=== PATIENT | female | born 1970 | race Caucasian/White ===

== ENCOUNTER 2017-05-07 09:56 | Day surgery (SDC) | payer OTHER ==
[~2017-05-07 09:56] MED LIST: (None)20 M1 PO; ACEASPCAF PO; ACEDIPPM; AEROECLIPSE II1 EACH MC; ALBU90OI; ALBU90OI6 INH; AMIT50; AMOX500 PO; AMOX875 PO; AZIT250 PO; AZIT500 PO; BUSP10 PO; CARB200; CARB200ER PO; CARI350; CHOL10002; CLON.1 PO; CLON.5 PO; CYCL10 PO; DIAZ10 PO; DIAZ5; DIAZ5 PO; DOXY100 PO; DULO30 PO; Desyrel150 MG; EPIN.3I; EPIN.3I IM; FAMO20 PO; FAMO40 PO; FLUO20; GABA600; HYDACE5; HYDACE5 PO; HYDR1TAB94; IBUP600 PO; IBUP800; IBUP800 PO; Imitrex50 MG JT; LORA1 PO; LORA10; LORA10ER PO; MELO7.5 PO; METR500 PO; NAPR375 PO; NAPR500 PO; NAPR550 PO; Norco 5-325 Ta1 EACH PO; OLAN10 PO; OMEP20ER; OXYACE5C PO; OXYACE5T PO; Omeprazole20 M1 PO; PANT20; PRED20 PO; PRODEXEL PO; PROP120ER; PROP160ER PO; QUET200; RANI150; Ranitidine HCl150 M1 PO; Valium5 MG PO; Ventolin Soln3 ML INH; Vibramycin100 MG PO; Vitamin D2000 UNIT PO; ZOLM5; ZOLP10 PO
== END 2017-05-07 22:42 | disposition home or self-care (01) ==
LOC: MOI MAM 09:56
PROC: 0HBU3ZX Excision of Left Breast, Percutaneous Approach, Diagnostic (ICD-10-PCS; principal; 2017-05-07)
DX: N60.12 Diffuse cystic mastopathy of left breast (principal); N60.22 Fibroadenosis of left breast
CPT/HCPCS: 19081; 88305

== ENCOUNTER → 2017-11-27 | Outpatient (CLI) | payer OTHER ==
[2017-12-02 15:07] LABS: HPV 16 Negative (Negative); HPV 18 Negative (Negative); HPV OTHER HR TYPES Negative (Negative)
== END | disposition home or self-care (01) ==
LOC: LAB SHORT 15:47 → LAB 15:47
PROVIDERS: Obstetrics & Gynecology
DX: Z01.419 Encounter for gynecological examination (general) (routine) without abnormal findings (principal)
CPT/HCPCS: 87624; G0123

== ENCOUNTER 2020-05-14 14:35 | Inpatient (IN) | payer MEDICARE, OTHER ==
[~2020-05-14] VITALS: Ht 160 cm; Wt 88.3 kg
[2020-05-14] MEDS ORDERED: PROG100 PO (14:43)
[2020-05-14] MEDS ORDERED: PROP160ER PO (14:43)
[2020-05-14] MEDS ORDERED: ESTR2 PO (14:45)
[2020-05-14] MEDS ORDERED: ZOCOR20 MG PO (14:45)
[2020-05-14] MEDS ORDERED: OXYB5 PO (14:46)
[2020-05-14] MEDS ORDERED: LISI20 PO (14:46)
[2020-05-14] MEDS ORDERED: GABA300 PO (14:47)
[2020-05-14] MEDS ORDERED: BUSP10 PO (14:47)
[2020-05-14] MEDS ORDERED: ONDA4 PO (14:47)
[2020-05-14 15:07] LABS: BASOPHILS ABSOLUTE AUTO 0.07 K/mm3 (0.00-0.23); BASOPHILS PERCENT AUTO 1 % (0-2); Hematocrit 38.7 % (33.0-51.0); Hemoglobin 13.9 g/dL (11.5-16.0); LYMPHOCYTES ABSOLUTE AUTO 0.58 K/mm3 (0.84-5.20); LYMPHOCYTES PERCENT AUTO 5 % (21-46); MONOCYTES ABSOLUTE AUTO 0.57 K/mm3 (0.16-1.47); MONOCYTES PERCENT AUTO 5 % (4-13); Mean Corpuscular HGB 30.7 pg (26.0-34.0); Mean Corpuscular HGB Conc 35.9 g/dL (31.5-36.5); Mean Corpuscular Volume 85 fL (80-100); Mean Platelet Volume 10.5 fL (9.1-12.4); Platelet Count 194 K/mm3 (150-400); RDW Coefficient Variation 12.7 % (11.7-14.2); RDW Standard Deviation 39.9 fL (35.1-46.3); Red Blood Cell Count 4.53 M/mm3 (3.80-5.20); White Blood Cell Count 12.64 K/mm3 (4.00-11.30)
[2020-05-14 15:08] LABS: EOSINOPHILS PERCENT AUTO 0 % (0-6); IMMATURE GRAN PERCENT AUTO 3 % (0-1); NEUTROPHILS ABSOLUTE AUTO 11.02 K/mm3 (1.96-9.15); NEUTROPHILS PERCENT AUTO 87 % (41-73)
[2020-05-14 15:28] LABS: Alanine Aminotransfer (ALT/SGP 53 U/L (12-78); Albumin, Blood 2.4 g/dL (3.4-5.0); Albumin/Globulin Ratio 0.5 (0.8-1.8); Alk Phos 100 U/L (50-136); Anion Gap 11 mmol/L (6-16); Aspartate Aminotrans (AST/SGOT 73 U/L (12-37); Blood Urea Nitrogen 16 mg/dL (8-24); Bun/Creatinine Ratio 19.3 (12.0-20.0); CO2, Blood 20 mmol/L (21-32); Calcium, Blood 8.3 mg/dL (8.5-10.1); Chloride, Blood 91 mmol/L (98-108); Creatinine, Blood 0.83 mg/dL (0.40-1.00); Globulin, Blood 4.4 g/dL (2.2-4.0); Glomerular Filtration Rate >60 (60-); Glucose, Blood 130 mg/dL (70-99); Potassium, Blood 2.7 mmol/L (3.5-5.5); Sodium, Blood 122 mmol/L (136-145); Total Protein, Blood 6.8 g/dL (6.4-8.2)
[2020-05-14 16:11] LABS: Influenza A, PCR NEGATIVE (NEGATIVE); Influenza B, PCR NEGATIVE (NEGATIVE); Resp Syncytial Virus, PCR NEGATIVE (NEGATIVE); SARS-Cov-2 (COVID-19) PCR, MMC NEGATIVE (NEGATIVE)
--- NOTE | 2020-05-15 01:23 | NUR ---
HARSH HACKING COUGH/ELEVATED HR PT HAS CONTINUOUS HARSH HACKING NON PRODUCTIVE COUGH THAT IS CAUSING PT TO DRY HEAVE. A RESULT PT HAS ELEVATED HR IN THE 150'S-160'S PER CALL FROM PCU SUPPORT COORDINATOR. PT IS ALSO VERY ANXIOUS, HAS HX OF ANXIETY DISORDER. MEDICATED PT WITH TESSALON PEARLS FOR COUGH AND TRAZADONE FOR SLEEP. PT CONTINUES TO COUGH HARSHLY DESPITE THOSE INTERVENTIONS. DR. BOB CALLED AND NOTIFIED OF PT ELEVATED HR, AND HACKING COUGH. NOTIFIED HIM OF PT ANXIETY BUT HEDID NOT ORDER ANYTHING FOR ANXIETY. RECEIVED ORDER FOR COUGH SYRUP, AND NO ORDERS OR INTERVENTIONS FOR PT HR. CITY BAILIFF MAGDALENA MCNAIR RN MADE AWARE OF PT HR. BREATHING TREATMENT HAS BEEN ADMINISTERED. 3L O2 IN PLACE, SATS 92-93%. WILL CONTINUE TO MONITOR.
--- NOTE | 2020-05-15 01:42 | NUR ---
ELEVATED HR/ANXIETY SPOKE WITH DR. BOB AGAIN REGARDING PT ELEVATED HR IN THE 160'S AND SEVERE ANXIETY D/T COUGH AND SOB. RECEIVED ORDER FOR 1X DOSE OF IV ATIVAN.
--- NOTE | 2020-05-15 03:35 | NUR ---
ICU TRANSFER PT ER ADMIT THIS SHIFT. PT HAD SOME N/V/D UPON ADMISSION BUT HAD VERY LITTLE RESPIRATORY COMPLAINTS ASIDE FROM A HARSH/HACKING COUGH. LUNG SOUNDS COURSE AND TIGHT. PT ON RA. SOME MILD ANXIETY, BUT MEDICATED FOR NAUSEA AND PT WAS ABLE TO REST. AT 0000 PT HR BEGAN TO ELEVATE TO 150'S 160'S PER PCU SYRUP BLENDER GENE PARKS, AND PT HARSH/HACKING COUGH WORSENED. PT REMAINED ON RA AND SATS WNL WITH VITALS. TESSALON PEARLS GIVEN BUT PT COUGH CONTINUED TO WORSEN, CALL FROM SYRUP BLENDER ALSO AT THAT TIME THAT HR SUSTAINING IN THE 150'S-160'S. PT ANXIOUS, MOVING BACK IN FORTH IN BED FROM A LAYING TO A SITTING POSITION, POSITIONAL BREATHING. MAGDALENA MCNAIR PROPERTY MAINTENANCE TECHNICIAN NOTIFIED OF PT ELEVATED HR, AND HACKING COUGH. DR. BOB CALLED AND NOTIFIED, ORDER RECEIVED FOR ADDITIONAL ANTITUSSIVES BUT GIVEN NOTHING TO ADDRESS HR. PT GIVEN COUGH SYRUP, AND WAS GIVEN A BREATHING TREATMENT BY RT, BUT PT COUGH AND SOB CONTINUED TO WORSEN. DR. BOB CALLED AND NOTIFIED ONCE AGAIN OF PT INCREASED HR, ANXIETY AND SOB. RECEIVED ORDER FOR ATIVAN. PT GIVEN ATIVAN AND WAS PLACED ON 3L O2, SATS HAD DECLINED FROM WNL TO 88% ON RA. SATS CORRECTED ON 3L AND PT WAS ABLE TO RELAX SOME AND REST AND REPORTED FEELING SOMEWHAT BETTER. AT ABOUT 0230, WITHIN HALF AN HOUR O2 NEEDS CONTINUED TO INCREASE. SHE WENT FROM REQUIRING 3L TO REQUIRING 12L VIA OXYMIZER. RESP QUCIKENED AND LABORED. RT CALLED TO EVALUATE PT, AND VITALS OBTAINED. PROPERTY MAINTENANCE TECHNICIAN IN ROOM TO ASSESS PT. DR. BOB CALLED AGAIN AND NOTIFIED OF PT INCREASED O2 DEMANDS FROM 3L TO 12 AND BARELY SUSTAINING THE 90'S AND ONCE AGAIN REMINDED OF PT ELEVATED HR. RECEIVED ORDER FOR PCU TRANSFER WITH BIPAP. REPORT GIVEN TO FEROZ MECHANIC FOREMAN. PT TRANSFERRED AT APPROX [address] PT TRANSFERRED TO ICU WITHOUT EVENT.
[2020-05-15 03:51] LABS: PCO2 Arterial 24.1 mmHg (35-45); PO2 Arterial 65.9 mmHg (80-100); pH Blood Arterial 7.46 (7.35-7.45)
[2020-05-15 03:55] LABS: Hematocrit 37.1 % (33.0-51.0); Hemoglobin 13.4 g/dL (11.5-16.0); Mean Corpuscular HGB 30.5 pg (26.0-34.0); Mean Corpuscular HGB Conc 36.1 g/dL (31.5-36.5); Mean Corpuscular Volume 84 fL (80-100); Mean Platelet Volume 10.8 fL (9.1-12.4); Platelet Count 179 K/mm3 (150-400); RDW Coefficient Variation 12.7 % (11.7-14.2); RDW Standard Deviation 39.2 fL (35.1-46.3); White Blood Cell Count 8.29 K/mm3 (4.00-11.30)
[2020-05-15 04:15] LABS: Alanine Aminotransfer (ALT/SGP 71 U/L (12-78); Albumin, Blood 2.3 g/dL (3.4-5.0); Albumin/Globulin Ratio 0.6 (0.8-1.8); Alk Phos 87 U/L (50-136); Anion Gap 11 mmol/L (6-16); Aspartate Aminotrans (AST/SGOT 187 U/L (12-37); Bilirubin, Total 0.8 mg/dL (0.1-1.0); Blood Urea Nitrogen 15 mg/dL (8-24); Bun/Creatinine Ratio 24.8 (12.0-20.0); CO2, Blood 17 mmol/L (21-32); Chloride, Blood 100 mmol/L (98-108); Creatinine, Blood 0.61 mg/dL (0.40-1.00); Globulin, Blood 3.9 g/dL (2.2-4.0); Glomerular Filtration Rate >60 (60-); Glucose, Blood 104 mg/dL (70-99); Magnesium, Blood 1.5 mg/dL (1.6-2.4); Potassium, Blood 3.4 mmol/L (3.5-5.5); Sodium, Blood 128 mmol/L (136-145); Total Protein, Blood 6.2 g/dL (6.4-8.2)
[2020-05-15 04:23] LABS: BAND PERCENT MAN 21 % (0-8); BASOPHILS PERCENT MAN 0 % (0-2); EOSINOPHILS PERCENT MAN 0 % (0-6); LYMPHOCYTES ABSOLUTE MAN 0.66 K/mm3 (0.84-5.20); LYMPHOCYTES PERCENT MAN 8 % (21-46); METAMYELOCYTE ABSOLUTE MAN 0.08 K/mm3 (0.00-0.00); METAMYELOCYTE PERCENT MAN 1 % (0-0); MONOCYTES ABSOLUTE MAN 0.24 K/mm3 (0.16-1.47); MONOCYTES PERCENT MAN 3 % (4-13); MYELOCYTE ABSOLUTE MAN 0.08 K/mm3 (0.00-0.00); MYELOCYTE PERCENT MAN 1 % (0-0); NEUTROPHILS ABSOLUTE MAN 7.21 K/mm3 (1.96-9.15); SEG NEUTROPHILS PERCENT MAN 66 % (41-73); TOTAL CELLS COUNTED 100
[2020-05-15 04:53] LABS: Influenza A, PCR NEGATIVE (NEGATIVE); Influenza B, PCR NEGATIVE (NEGATIVE); Resp Syncytial Virus, PCR NEGATIVE (NEGATIVE); SARS-Cov-2 (COVID-19) PCR, MMC NEGATIVE (NEGATIVE)
--- NOTE | 2020-05-15 08:46 | NUR ---
ASSUMED CARE BEDSIDE REPORT FROM FEROZ SINGLETON. AT START OF SHIFT PT ON AIRVO 45 L 70%, PT INCREASINGLY TACHYPNEIC, RATE 50-60'S, LABORED. GRUNTING RESP. ATTEMPTED TO SLIVER FORMER PT TO SLOW RESP, PT UNABLE TO. HR 150-160, ST. LUNGS CLEAR. PT c DRY HACKING COUGH. RT AT BEDSIDE. PLACED ON BIPAP 10/5 80%. O2 SATS LOW 90'S. RR CONTINUES AT 50-60. DR SHERMAN CONSULTED. MEDICATED c ATIVAN AND HALDOL s RELIEF. PT NOT TOLERATING BIPAP WELL. NEEDS FREQUENT REMINDERS TO LEAVE IN PLACE AND COACHING TO SLOW RESP. POWERGLIDE PLACED TO LUE. RN REMAINS AT BEDSIDE.
[2020-05-15 11:13] LABS: PCO2 Arterial 39.7 mmHg (35-45); pH Blood Arterial 7.26 (7.35-7.45)
[2020-05-15 11:17] LABS: Source, Urine Catheter
--- NOTE | 2020-05-15 11:20 | NUR ---
RN CALLED TO BEDSIDE AT 0945. PT C/O NAUSEA, PULLING AT BIPAP MASK, REFUSING TO WEAR. MEDICATED c ZOFRAN 4 MG IVP s RELIEF. PLACED ON AIRVO 60L, 89% c NRB IN PLACE. O2 SATS DECREASED TO 50-60'S. TACHPNEIC, LABORED RESP. DR SHERMAN CALLED TO BEDSIDE. PLAN FOR INTUBATION. TIMEOUT 1008. SO UPDATED BY PALLATIVE CARE. MEDICATED c ETOMIDATE 20 MG IVP AND VECURONIUM 2 MG. INTUBATED c 7.5 ETT, 24 AT TEETH. + COLOR CHANGE, BILATERAL BS. VENT SETTINGS AC 16/350/10/100%. RESTRAINTS PLACED TO PROTECT LINES AND TUBES. PROPOFOL GTT FOR SEDATION, PRECEDEX D/C'D. OGT PLACED, AUSCUTATED FOR PLACEMENT, LIS. CHEST XRAY COMPLETE. TEMP PROBE TORRES, 16F. URINE SENT TO LAB, RAGINI, CLEAR. TEMP 101.5. AT BEDSIDE. WILL CONTINUE TO MONITOR.
--- NOTE | 2020-05-15 11:23 | NUR ---
Pt have severe dyspnea and nausea. Nursing updated intesivist pt intubated. Family notified and will be coming in. will follow up for disease managment
[2020-05-15 11:27] LABS: Bilirubin, Urine Neg (Neg); Blood, Urine 5+ (Neg); Glucose Qualitative, Urine Neg (Neg); Ketones, Urine 3+ (Neg); Leukocyte Esterase, Urine 1+ (Neg); Nitrite, Urine Neg (Neg); Protein, Urine 3+ (Neg); Urobilinogen, Urine NORM (Normal)
[2020-05-15 11:41] LABS: Appearance, Urine Cloudy (Clear); Color, Urine Yellow (P-Yellow)
[2020-05-15 11:42] LABS: Amorphous Mod (0-Heavy); Bacteria Few /hpf; Granular Casts 0-2 /lpf (0); Mucus Light (0-Heavy); Squamous Epithelial Cells Few /hpf (Few); White Blood Cells, Urine 0-2 /hpf (0-5)
[2020-05-15 16:24] LABS: Base Excess Venous -9.5 mmol/L; Bicarbonate Venous 17.3 mmol/L (24.0-30.0); PCO2 Venous 38 mmHg (38-42); pH Blood Venous 7.27 (7.34-7.37)
[2020-05-15 16:52] LABS: Anion Gap 7 mmol/L (6-16); Blood Urea Nitrogen 18 mg/dL (8-24); Bun/Creatinine Ratio 26.4 (12.0-20.0); CO2, Blood 20 mmol/L (21-32); Calcium, Blood 7.6 mg/dL (8.5-10.1); Chloride, Blood 104 mmol/L (98-108); Creatinine, Blood 0.68 mg/dL (0.40-1.00); Glomerular Filtration Rate >60 (60-); Glucose, Blood 142 mg/dL (70-99); Magnesium, Blood 2.1 mg/dL (1.6-2.4); Potassium, Blood 4.2 mmol/L (3.5-5.5); Sodium, Blood 131 mmol/L (136-145)
--- NOTE | 2020-05-15 17:12 | NUR ---
Spiritual care note: I met with Etienne's , Zia, at bedside. He is very woried and tearful. He repeatedly stated how important Etienne is to him. She has 3 adult dtrs, estranged from one apparently. I provided calm assurance of excellent care and attention. Educated on ICU protocols at his request. He intends to stay at bedside throughout her hospitalization. With Covid restrictions, not sure this is possible. I provided affirmation of obvious love, asurance of care, and encouraged self-care. Etienne is of spirituality. Zia declined prayer at this time. I will remain available.
--- NOTE | 2020-05-15 17:30 | NUR ---
SHIFT SUMMARY SEE INTUBATION NOTE. PT REMAINS INTUBATED AND SEDATED. 7.5 ETT, 23 AT TEETH. VENT SETTINGS AC 24/315/16/85%. PROPOFOL GTT 50 MCG/KG/MIN. PT RESPONSES TO VERBAL STIMULI. MEDICATED c ATIVAN AND FENTANYL PRN. LUNGS COARSE THROUGHOUT. SMALL AMOUNT OF THICK PINK/GALEANO SECRETIONS THROUGH ETT. RR 40'S, DR SHERMAN AWARE. TUBE FEEDS STARTED, VHP AT GOAL OF 15 ML/HR c 30 ML FLUSHES q4 HR. 120 ML OF RESIDUALS THIS AFTERNOON. TORRES PATENT, DRAINING RAGINI URINE TO GRAVITY, [address] ON MONITOR, RATE 130-140'S. EKG DONE, ECHO ORDERED FOR TOMORROW. BP STABLE. TMAX 102.4, MEDICATED c TYLENOL c RELIEF. WILL CONTINUE TO MONITOR UNTIL REPORT TO ONCOMING NURSE.
--- NOTE | 2020-05-15 19:00 | NUR ---
ASSUMPTION OF CARE RECEIVED REPORRT FROM MAUDE SINGLETON. ASSUMED CARE OF PATIENT. PATIENT INTUBATED AND SEDATED WITH VENT SETTINGS AC 24, VT 315, PEEP 16, FIO2 95%. PROPOFOL AT 50MCG/KG/MIN. SAS OF 3. VITALS STABLE AT THIS TIME. WILL REVIEW ORDERS AND TREAT PRESCRIBED.
--- NOTE | 2020-05-15 20:39 | NUR ---
RESIDUALS UPON ASSESSMENT OF GI RESIDUALS, DARK COFFEE GROUND CONSISTANCY NOTED. 50MLS REMOVED, OG TO LIS AND RESEARCH ADMINISTRATOR TO ROOM TO VERIFY ASSESSMENT. DR. SHERMAN NOTIFIED VIA T/P, RECEIVED NEW ORDERS FOR PROTONIX AND CLARIFIED TO RESUME TF AND GIVE PO MEDS SCHEDULED. WILL HOLD HUMABID AND CATAPRES PER HER DIRECTION. WILL MONITOR H/H WITH AM LABS, AND CONTINUE TO MONITOR VITAL SIGNS.
--- NOTE | 2020-05-16 00:03 | NUR ---
REASSESSMENT NO ACUTE CHANGES FROM PREVIOUS ASSESSMENT. VENT SETTINGS AC 24, TV 315, PEEP 16, FIO2 80%. RESIDUALS REFED OF 20CC TUBE FEED COLOR AND CONSISTENCY. PATIENT REMAINS TACHYPNEIC AND TACHYCARDIC. DR. SHERMAN TO BEDSIDE, REPORTED PATIENT'S CURRENT VITALS RECEIVED AN ORDER FOR A FLUID BOLUS. WILL TREAT PRESCRIBED. TORRES PATENT AND DRAINING CLEAR, YELLOW URINE. WILL CONTINUE TO MONITOR.
[2020-05-16 03:55] LABS: Hematocrit 31.5 % (33.0-51.0); Hemoglobin 10.8 g/dL (11.5-16.0); Mean Corpuscular HGB 30.8 pg (26.0-34.0); Mean Corpuscular HGB Conc 34.3 g/dL (31.5-36.5); Mean Platelet Volume 11.7 fL (9.1-12.4); Platelet Count 157 K/mm3 (150-400); RDW Coefficient Variation 13.9 % (11.7-14.2); RDW Standard Deviation 45.7 fL (35.1-46.3); Red Blood Cell Count 3.51 M/mm3 (3.80-5.20); White Blood Cell Count 11.34 K/mm3 (4.00-11.30)
--- NOTE | 2020-05-16 04:00 | NUR ---
REASSESSMENT NO ACUTE CHANGES FROM PREVIOUS ASSESSMENT. PATIENT REMAINS SEDATED ON 50MCG OF PROPOFOL, VENTILATOR SETTINGS AC 24, TV 315, PEEP 16, FIO2 80%. RESIDUALS OF 20ML OF TF COLOR AND CONSISTENCY REFED. REMAINS TACHYPNEIC AND TACHYCARDIC AFTER FLUID BOLUS GIVEN. TORRES CATHETER PATENT AND DRAINING CLEAR, YELLOW URINE. WILL CONTINUE TO MONITOR.
[2020-05-16 04:01] LABS: Mean Corpuscular Volume 90 fL (80-100)
[2020-05-16 04:18] LABS: Anion Gap 6 mmol/L (6-16); Blood Urea Nitrogen 16 mg/dL (8-24); Bun/Creatinine Ratio 27.7 (12.0-20.0); CO2, Blood 21 mmol/L (21-32); Calcium, Blood 7.5 mg/dL (8.5-10.1); Chloride, Blood 104 mmol/L (98-108); Creatinine, Blood 0.58 mg/dL (0.40-1.00); Glomerular Filtration Rate >60 (60-); Glucose, Blood 124 mg/dL (70-99); Magnesium, Blood 2.2 mg/dL (1.6-2.4); Phosphorus, Blood 1.9 mg/dL (2.5-4.9); Potassium, Blood 3.8 mmol/L (3.5-5.5); Sodium, Blood 131 mmol/L (136-145)
[2020-05-16 04:28] LABS: BAND PERCENT MAN 43 % (0-8); BASOPHILS PERCENT MAN 0 % (0-2); EOSINOPHILS PERCENT MAN 0 % (0-6); LYMPHOCYTES ABSOLUTE MAN 0.68 K/mm3 (0.84-5.20); LYMPHOCYTES PERCENT MAN 6 % (21-46); MONOCYTES ABSOLUTE MAN 0.45 K/mm3 (0.16-1.47); MONOCYTES PERCENT MAN 4 % (4-13); SEG NEUTROPHILS PERCENT MAN 47 % (41-73); TOTAL CELLS COUNTED 100
--- NOTE | 2020-05-16 06:17 | NUR ---
SHIFT SUMMARY NO ACUTE CHANGES OVER NIGHT. PATIENT REMAINED SEDATED ON 50MCG OF PROPOFOL. VENT SETTINGS AC 24/315/16/80%. TACHYPNEIC AND TACHYCARDIC THROUGH NIGHT. FEBRILE CHARTED. ORDERED MEDICATIONS GIVEN CHARTED. TORRES PATENT AND DRAINING SHERICE, YELLOW URINE. REPORTED PATIENT'S PHOSPHOROUS LEVEL TO DR. BOB, RECEIVED NEW ORDERS. KPHOS INFUSING IV ORDERED. WILL CONTINUE TO MONITOR AND REPORT TO ONCOMING RN.
--- NOTE | 2020-05-16 07:34 | NUR ---
Received report from Consuelo SINGLETON. Patient is intubated and sedated. She has 7.5 ET and 23 cm at teeth with vent settings AC 24, TV 315, FiO2 80%, PEEP 16 and sats 94%. Patient has 20ga PowerGlide in WILMER infusing Propofol at 50 mcg/kg/min and NS TKO. She also has 20ga RH infusin K phos and NS TKO. She has 16Fr Temp rivero draining to gravitydark yellow urine and has temp 101.3, applied fan and ice packs to neck and arm pits. Patient is ST 140's and systolic 114 with RR 30-40's. Patient has silvia;ateral soft wrist restyraints for patient and line/tube safety.
--- NOTE | 2020-05-16 10:00 | NUR ---
Patient has large black liquid stool, about 400 mls and changes linen and placed rectal tube for better control and skin protection. Vent settings AC 24, TV 315, FiO2 70% and PEEP 16 and sats >95%. Mcdaniel continues to drain pink urine over the last few hours. No changes in Propofol.
[2020-05-16 10:05] LABS: Hematocrit 27.4 % (33.0-51.0); Hemoglobin 9.6 g/dL (11.5-16.0)
[2020-05-16 10:43] LABS: International Normalized Ratio 0.99; Prothrombin Time Results 10.6 Sec (9.7-11.5)
--- NOTE | 2020-05-16 12:00 | NUR ---
Gave two 500 ml LR boluses for rate control and has had minimal effect on rate 120's down 130-140's. Started protonix gtt and stopped tube feeding after she had large BM, all other VS WNL's See EMR.
[2020-05-16 12:28] LABS: PO2 Arterial 85.1 mmHg (80-100)
[2020-05-16 12:30] LABS: pH Blood Arterial 7.27 (7.35-7.45)
[2020-05-16 13:37] LABS: Vancomycin, Trough 10.9 ug/mL (5.0-10.0)
--- NOTE | 2020-05-16 14:20 | NUR ---
arrived while Dr Oleary in room and scioe team came in to prep for scope and left, called on phone for consent. No changes in vent settiongs or gtt's.
--- NOTE | 2020-05-16 14:39 | NUR ---
PT IN ICU 1 BED, INTUBATED. History, Chart, Medications and Allergies reviewed before start of procedure. PT'S LUNGS COARSE THROUGHOUT.
--- NOTE | 2020-05-16 15:01 | NUR ---
05/16/20 1501 HUMA YOUNG History, Chart, Medications and Allergies reviewed before start of procedure. 3-LEAD EKG REVIEWED WITH PHYSICIAN PRIOR TO START OF PROCEDURE. O2 VIA N/C INTACT THROUGHOUT SEDATION/PROCEDURE. MONITOR INTACT WITH CONTINUOUS PULSE OXIMETRY AND INTERMITTENT BP. PT INTUBATED.
--- NOTE | 2020-05-16 15:33 | NUR ---
echocardiogram complete
--- NOTE | 2020-05-16 16:30 | NUR ---
Scope finished and 2 clips, biopsies, and sevral ulcers. came back and met with both Dr Oleary, and Dr dove at different times and received updated. She remains in ST 120-130's. Sats and BP's WNL's on curerent settings. TF resumed per Dr Dove.
--- NOTE | 2020-05-16 16:48 | NUR ---
Spiritual care note: Pt's spouse, Zia, asked to speak with me in hallway. He expressed gratitude for emotional support. He continues to verbalize fear and expresses deep love for Delynn. Zia responded well to gentle counseling department chair. We have an easy rapport. He remains hopeful she will completely recover. I will remain available.
--- NOTE | 2020-05-16 18:00 | NUR ---
Vent settings AC 24, TV 315, FiO2 70%, PEEP 16and sats 94%, Prpofol remains at 50 mcg/kg/min and LR at 00 with several NS TKO. Rectal tube minimal output, and rivero has ibarra red urine. PICC line WILMER patent. No other significant changes with patient.
--- NOTE | 2020-05-16 19:26 | NUR ---
ASSUMPTION OF CARE RECEIVED REPORT FROM SESAR SINGLETON. ASSUMED CARE OF PATIENT. PATIENT VENTILATED AND SEDATED ON 50MCG OF PROPOFOL. VENT SETTINGS AC 24, VT 315, PEEP 16, FIO2 70%. TF INFUSING AT 15ML/HR WITH H2O FLUSH OF 30ML EVERY 4 HOURS VIA DOBHOFF IN RIGHT NARE. VITALS CHARTED. TORRES PATENT AND DRAINING CLEAR, YELLOW URINE. RECTAL TUBE IN PLACE WITH DRAINAGE AT THIS TIME. WILL REVIEW ORDERS AND TREAT PRESCRIBED.
[2020-05-16 23:06] LABS: Hemoglobin 9.3 g/dL (11.5-16.0)
--- NOTE | 2020-05-17 | NUR ---
REASSESSMENT NO ACUTE CHANGES FROM PREVIOUS ASSESSMENT. VENT SETTINGS AC 24, VT 315, PEEP 16, FIO2 80%. PROPOFOL AT 50MCG, PROTONIX GTT INFUSING ORDERED WELL LR AT 100ML/HR. TF REMAIN AT GOAL OF 15ML/HR VIA DOBHOFF. SCDS PLACED TO BILAT LOWER EXTREMITIES PER DR. SHERMAN'S ORDER. H/H PERFORMED AND REVIEWED, REMAINS STABLE. VITALS STABLE CHARETED. HEART RATE IMPROVED IN 120'S. NO S/S OF DISTRESS. WILL CONTINUE TO MONITOR AND TREAT PRESCRIBED.
[2020-05-17 03:37] LABS: Hematocrit 27.6 % (33.0-51.0); Hemoglobin 9.4 g/dL (11.5-16.0); Mean Corpuscular HGB 30.9 pg (26.0-34.0); Mean Corpuscular HGB Conc 34.1 g/dL (31.5-36.5); Mean Corpuscular Volume 91 fL (80-100); Mean Platelet Volume 11.9 fL (9.1-12.4); Platelet Count 147 K/mm3 (150-400); RDW Coefficient Variation 14.5 % (11.7-14.2); RDW Standard Deviation 48.4 fL (35.1-46.3); Red Blood Cell Count 3.04 M/mm3 (3.80-5.20)
[2020-05-17 03:54] LABS: Anion Gap 6 mmol/L (6-16); Blood Urea Nitrogen 14 mg/dL (8-24); Bun/Creatinine Ratio 24.3 (12.0-20.0); CO2, Blood 25 mmol/L (21-32); Calcium, Blood 7.6 mg/dL (8.5-10.1); Chloride, Blood 102 mmol/L (98-108); Creatinine, Blood 0.58 mg/dL (0.40-1.00); Glomerular Filtration Rate >60 (60-); Glucose, Blood 116 mg/dL (70-99); Magnesium, Blood 2.2 mg/dL (1.6-2.4); Phosphorus, Blood 2.6 mg/dL (2.5-4.9); Potassium, Blood 3.7 mmol/L (3.5-5.5); Sodium, Blood 133 mmol/L (136-145)
[2020-05-17 03:57] LABS: PCO2 Arterial 45.5 mmHg (35-45); PO2 Arterial 90.4 mmHg (80-100); pH Blood Arterial 7.28 (7.35-7.45)
--- NOTE | 2020-05-17 04:00 | NUR ---
REASSESSMENT NO ACUTE CHANGES FROM PREVIOUS ASSESSMENT. IV FLUIDS AND SEDATION INFUSING AT PREVIOUS RATES. VENT SETTINGS UNCHANGES. SATS MAINTAING ABOVE 95%. VITALS STABLE. AFEBRILE, HR 120'S. TF AT 15ML/HR VIA DOBHOFF. TORRES PATENT AND DRAINING CLEAR, YELLOW URINE. LABS REVIEWED. WILL CONTINUE TO MONITOR.
[2020-05-17 04:26] LABS: BAND PERCENT MAN 2 % (0-8); BASOPHILS PERCENT MAN 0 % (0-2); EOSINOPHILS PERCENT MAN 0 % (0-6); LYMPHOCYTES ABSOLUTE MAN 0.86 K/mm3 (0.84-5.20); LYMPHOCYTES PERCENT MAN 5 % (21-46); METAMYELOCYTE ABSOLUTE MAN 0.34 K/mm3 (0.00-0.00); METAMYELOCYTE PERCENT MAN 2 % (0-0); MONOCYTES ABSOLUTE MAN 0.86 K/mm3 (0.16-1.47); MONOCYTES PERCENT MAN 5 % (4-13); MYELOCYTE ABSOLUTE MAN 0.34 K/mm3 (0.00-0.00); MYELOCYTE PERCENT MAN 2 % (0-0); NEUTROPHILS ABSOLUTE MAN 14.87 K/mm3 (1.96-9.15); SEG NEUTROPHILS PERCENT MAN 84 % (41-73); TOTAL CELLS COUNTED 100
[2020-05-17 05:32] LABS: PO2 Arterial 84.8 mmHg (80-100)
[2020-05-17 05:33] LABS: PCO2 Arterial 54 mmHg (35-45); pH Blood Arterial 7.25 (7.35-7.45)
--- NOTE | 2020-05-17 06:03 | NUR ---
SHIFT SUMMARY NO ACUTE CHANGES THORUGHOUT NIGHT. VITALS STABLE. REMAINED AFEBRILE, SATS ABOVE 95% ON 80% FIO2. VENT SETTING UNCHANGED FROM INITIAL START OF SHIFT. TF REMAINS AT GOAL OF 15ML/HR VIA DOBHOFF. TORRES REMAINED PATENT AND DRAINING CLEAR, YELLOW URINE. RECTAL TUBE IN PLACE WITH NO OUTPUT NOTED. LABS REVIEWED, PH DISCUSSED WITH FELT MACHINE MECHANIC, UNCHANGED FROM PREVIOUS RESULTS. WILL CONTINUE TO MONITOR AND REPORT TO ONCOMING RN.
--- NOTE | 2020-05-17 07:01 | NUR ---
Received report from Consuelo SINGLETON. Patient is intubated and sedated. She has 8.0 ET and 23 cm at teeth with vent settings of AC 24, TV 315, FiO2 65% and dropped to 50% and PEEP 16 with current sats 94%. She withdrawls from oral care and positioning. She has PICC line WILMER infusing Propofol 40 mcg/kg/min, LR at 100ml/hr, NS TKO. She also has 20ga RH infusing NS TKO site WNL's. She has 16Fr temp rivero draining to gravity yellow urine and temp 99.1. She has rectal tube in place with no output and will check patency. She has bilateral SCD to LE's and Bilateral soft wrist restraints to upper extremities. She is in ST 120, BP 110-120/60's. She still has small amounts of ET secretionstan/white thick.
--- NOTE | 2020-05-17 09:30 | NUR ---
Patient remains on same vent setting and gtt have not changed as well. Meds IV and dobhoff per MAY. She remaisn in ST and systolics 110-120's and MAPS >65. Repsoitioned.
--- NOTE | 2020-05-17 11:30 | NUR ---
Dr Muse has seen patient and stopped LR and is continueing TKO for Abx. Vent setting changes AC 30, TV 315, FiO2 50%, PEEP 16 and sats 94%. Repositioning and oral care. ST 102, systolic low 100's.
--- NOTE | 2020-05-17 13:30 | NUR ---
No significant changes with patient. Vent setting AC 30, TV 315, FiO2 50% and sats 94%. Propofol remaisn at 40m,cg/kg/min. LR off. VSS, See EMR.
[2020-05-17 13:59] LABS: Vancomycin, Trough 19.2 ug/mL (5.0-10.0)
--- NOTE | 2020-05-17 15:30 | NUR ---
in room and Dr Muse gave him updates and HR down to the 90's and systolic 90's and sats 92-95%. Vent settings AC 30, TV 315, FiO2 45%, Peep 16. Repositioned and oral care , cath care.
--- NOTE | 2020-05-17 18:31 | NUR ---
No stool in 24 hours and pulled rectal tube and checked for stool. Still had very small amout of dark watery stool, about 20ml and checked rectum and no stool that I could feel and replaced rectal stool.VSS, See EMR. Vent setting AC 30, TV 315, FiO2 45%, PEEP 16 and sats 93%. Propofol at 40 mcg/kg/min, Protnix 10 ml/hr and NS TKO, LR TKO.
--- NOTE | 2020-05-17 19:14 | NUR ---
ASSUMPTION OF CARE RECEIVED REPORT FROM SESAR SINGLETON AT 1900. ASSUMED CARE OF PATIENT. PATIENT INTUBATED WITH VENT SETTINGS AC 30, VT 315, FIO2 45%, PEEP 16, 02 SATS 95%. SEDATED WITH PROPOFOL AT 40MCG/KG/MIN. PROTONIX GTT INFUSING AT 10ML/HR. DOBJOFF TO RIGHT NARE WITH TF INFUSING AT 15ML/HR. TORRES CATHETER PATENT AND DRAINING CLEAR, YELLOW URINE. VITALS STABLE CHARTED. WILL REVIEW ORDERS AND TREAT PRESCRIBED.
--- NOTE | 2020-05-18 | NUR ---
REASSESSMENT NO ACUTE CHANGES FROM PREVIOUS ASSESSMENT. VITALS STABLE. VENT SETTINGS UNCHANGED. PROPOFOL CONTINUES AT 40MCG, TF CONTINUES AT 15ML/HR VIA TAWANA. WILL CONTINUE TO MONITOR.
--- NOTE | 2020-05-18 04:00 | NUR ---
REASSESSMENT NO ACUTE CHANGES FROM PREVIOUS ASSESSMENT. VITALS STABLE. VENT SETTINGS REMAIN UNCHANGED. WILL CONTINUE TO MONITOR.
[2020-05-18 04:02] LABS: Base Excess Venous -2.5 mmol/L; Bicarbonate Venous 22.1 mmol/L (24.0-30.0); PCO2 Venous 46.1 mmHg (38-42); PO2 Venous 54.5 mmHg (38-42); pH Blood Venous 7.32 (7.34-7.37)
[2020-05-18 04:03] LABS: Hematocrit 28.4 % (33.0-51.0); Hemoglobin 9.7 g/dL (11.5-16.0); Mean Corpuscular HGB Conc 34.2 g/dL (31.5-36.5); Mean Corpuscular Volume 91 fL (80-100); Mean Platelet Volume 12.2 fL (9.1-12.4); Platelet Count 165 K/mm3 (150-400); RDW Coefficient Variation 14.7 % (11.7-14.2); RDW Standard Deviation 49.1 fL (35.1-46.3); Red Blood Cell Count 3.13 M/mm3 (3.80-5.20); White Blood Cell Count 22.76 K/mm3 (4.00-11.30)
[2020-05-18 04:43] LABS: BASOPHILS PERCENT MAN 0 % (0-2); EOSINOPHILS PERCENT MAN 0 % (0-6); LYMPHOCYTES ABSOLUTE MAN 0.91 K/mm3 (0.84-5.20); LYMPHOCYTES PERCENT MAN 4 % (21-46); METAMYELOCYTE ABSOLUTE MAN 0.45 K/mm3 (0.00-0.00); METAMYELOCYTE PERCENT MAN 2 % (0-0); MONOCYTES ABSOLUTE MAN 1.36 K/mm3 (0.16-1.47); MONOCYTES PERCENT MAN 6 % (4-13); MYELOCYTE ABSOLUTE MAN 0.22 K/mm3 (0.00-0.00); MYELOCYTE PERCENT MAN 1 % (0-0); SEG NEUTROPHILS PERCENT MAN 87 % (41-73); TOTAL CELLS COUNTED 100
[2020-05-18 04:44] LABS: Alanine Aminotransfer (ALT/SGP 91 U/L (12-78); Albumin, Blood 1.5 g/dL (3.4-5.0); Albumin/Globulin Ratio 0.4 (0.8-1.8); Alk Phos 123 U/L (50-136); Anion Gap 5 mmol/L (6-16); Aspartate Aminotrans (AST/SGOT 218 U/L (12-37); Bilirubin, Total 1.2 mg/dL (0.1-1.0); Blood Urea Nitrogen 25 mg/dL (8-24); Bun/Creatinine Ratio 32.7 (12.0-20.0); CO2, Blood 25 mmol/L (21-32); Chloride, Blood 103 mmol/L (98-108); Creatinine, Blood 0.76 mg/dL (0.40-1.00); Globulin, Blood 3.7 g/dL (2.2-4.0); Glomerular Filtration Rate >60 (60-); Glucose, Blood 102 mg/dL (70-99); Magnesium, Blood 2.3 mg/dL (1.6-2.4); Phosphorus, Blood 2.8 mg/dL (2.5-4.9); Potassium, Blood 3.8 mmol/L (3.5-5.5); Sodium, Blood 133 mmol/L (136-145); Total Protein, Blood 5.2 g/dL (6.4-8.2)
--- NOTE | 2020-05-18 06:13 | NUR ---
SHIFT SUMMARY NO ACUTE CHANGES OR EVENT THROUGH SHIFT. FIO2 REMAINED AT 45% WITH SATS ABOVE 95%. VITALS STABLE. TF REMAIN AT GOAL OF 15ML/HR VIA DOBHOFF. TORRES CATHETER DRAINING CLEAR, RAGINI URINE. RECAL TUBE WITH DARK DRAINAGE IN TUBE. WILL CONTINUE TO MONITOR AND REPORT TO ONCOMING RN.
--- NOTE | 2020-05-18 08:00 | NUR ---
PT REMAINS INTUBATED, SEDATED, AND RESTRAINED. PROPOFOL DRIP @ 30 MCG/KG/MIN. PT GRIMACES AND BEGINS COUGHING WITH NOXIOUS STIMULI, ORAL CARE, AND REPOSITIONING. PT AFEBRILE. ECG SHOWS SR TO ST. SBP TRENDING 100-110'S. ETT TO VENT AC 30, RR UPPER 30'S, TV 315, PEEP 16, FIO2 45%-SATS >90%. LUNGS COARSE AND TIGHT THROUGH OUT-R>L. ETT SUCTION PRODUCTIVE OF LARGE AMOUNT OF THICK, GALEANO SPUTUM. TOLERATING DOBHOFF TF @ GOAL WELL. ABDOMEN IS ROUND WITH HYPOACTIVE BT'S X 4. RECTAL TUBE WITH SMALL AMOUNT OF BROWN, LIQUID STOOL NOTED. TORRES WITH SMALL AMOUNT OF YELLOW URINE TO UROMETER. GENERALIZED EDEMA NOTED. SCHEDULED AM LASIX GIVEN-SEE EMAR.
--- NOTE | 2020-05-18 10:00 | NUR ---
PT RR UPPER 40'S TO 50'S WITH REPOSITIONING. SATS DOWN TO 79%. PT COUGHING AND ALARMING VENT-SUCTION PRODUCTIVE OF MODERATE AMOUNT OF THICK, GALEANO SECRETIONS. TEMP 99.0-FAN ON PT. SBP TRENDING 90'S. TORRES WITH GOOD URINE OUTPUT SINCE LASIX GIVEN-APROX. 500 CC OUT SO FAR. DR. SHERMAN GIVEN BRIEF UPDATE TO CURRENT VS AND STATUS.
--- NOTE | 2020-05-18 12:00 | NUR ---
PT CONTINUES TO BE INTUBATED, SEDATED, AND RESTRAINED. PROPOFOL @ 40 MCG/KG/MIN. PT RR 36-38 AT PRESENT. SATS TRENDING 88-94% DESATS WITH TURNING/POSITION CHANGES. SUCTION PRODUCTIVE OF LARGE AMOUNT OF THICK, GALEANO SECRETION. NO VENT CHANGES. SBP TRENDING 90'S-HR 90-110'S SR TO ST. URINE OUTPUT 1200 CC SO FAR THIS SHIFT.
[2020-05-18 12:57] LABS: Amylase, Blood 34 U/L (25-115)
--- NOTE | 2020-05-18 14:00 | NUR ---
WBC'S CONTINUE TO BE ELEVATED AND LOW GRADE FEVER AT TIMES. SOMMER CULTURES SENT PER DR. SHERMAN ORDERS. PT IN FOR VISIT-UPDATED TO CURRENT STATUS AND PLAN OF CARE.
[2020-05-18 14:28] LABS: Source, Urine Catheter
[2020-05-18 14:41] LABS: Bilirubin, Urine Neg (Neg); Blood, Urine 5+ (Neg); Color, Urine Yellow (P-Yellow); Glucose Qualitative, Urine Neg (Neg); Ketones, Urine Neg (Neg); Leukocyte Esterase, Urine 1+ (Neg); Nitrite, Urine Neg (Neg); Protein, Urine 2+ (Neg); Urobilinogen, Urine NORM (Normal)
[2020-05-18 15:03] LABS: Appearance, Urine Hazy (Clear)
[2020-05-18 15:06] LABS: Red Blood Cells, Urine 25-50 /hpf (0-2)
[2020-05-18 15:07] LABS: Bacteria Few /hpf; Granular Casts 0-2 /lpf (0); Squamous Epithelial Cells Few /hpf (Few)
--- NOTE | 2020-05-18 15:33 | NUR ---
Reviewed chart and discussed case with Bedside RN Stephanie. Pt resting in bed and is intubated. Spouse Zia and bedside. Offered therapeutic listening and validated concerns. Zia reports having difficulty sleeping and has not been eating due to stress of Pt's current condition. Suggested importance of self care. Continued therapeutic listening. Zia expresses appreciation of visit. Palliative Care will remain available.
--- NOTE | 2020-05-18 17:05 | NUR ---
PT HAS BEEN PRE MEDICATED WITH FENTANYL 25 MCG IVP PRIOR TO POSITION CHANGES-SEE EMAR. AND SATS REMAINED>90%. PT RESTING QUIETLY ON VENT. DR. SHERMAN IN TO SEE PT AND DECREASED PEEP TO 14. SATS 93% URINE OUTPUT 1500 CC THIS SHIFT.
--- NOTE | 2020-05-18 21:35 | NUR ---
Care Assumed 1900 Pt intubated and sedated. Propofol at 40 mcg/kg/min, infusing via PICC WILMER. AC 30/315/45%/ peep of 14. Pt with decreased SPO2 to 83%, increased RR 41, and coughing during turns. Treated with fentanyl PRN. Pt grimaces during oral care/turns. Protonix gtt 10 ml/hr. Dobhoff in place, inufsing VH at goal of 15 ml/hr. Rivero catheter patent and draining clear, yellow urine. Rectal tube in place with green/brown liquid stool. NSR/SINUS TACH, BP stable, rivero probe temp of 99.3, SPO2 > 88%. SWB and SCD's in place. Spoke to Dr. Muse in regards to pts
--- NOTE | 2020-05-19 00:48 | NUR ---
UPDATE Pt with unchanged vent or propofol settings. Pt remains in NSR or SINUS TACH with occasional PVC's. HR 100-110's. Pt with increased RR 35-41 during bedbath/turns, coughing/grimacing, treated with fentanyl, see emar. BP stable. Pt responds to noxious stimuli. Will continue to monitor.
[2020-05-19 03:37] LABS: Hematocrit 27.6 % (33.0-51.0); Hemoglobin 9.5 g/dL (11.5-16.0); Mean Corpuscular HGB 30.9 pg (26.0-34.0); Mean Corpuscular HGB Conc 34.4 g/dL (31.5-36.5); Mean Corpuscular Volume 90 fL (80-100); Mean Platelet Volume 11.7 fL (9.1-12.4); Platelet Count 214 K/mm3 (150-400); RDW Coefficient Variation 14.6 % (11.7-14.2); RDW Standard Deviation 47.7 fL (35.1-46.3); Red Blood Cell Count 3.07 M/mm3 (3.80-5.20); White Blood Cell Count 24.12 K/mm3 (4.00-11.30)
[2020-05-19 03:56] LABS: Anion Gap 8 mmol/L (6-16); Blood Urea Nitrogen 30 mg/dL (8-24); Bun/Creatinine Ratio 36.9 (12.0-20.0); CO2, Blood 25 mmol/L (21-32); Calcium, Blood 8.3 mg/dL (8.5-10.1); Chloride, Blood 104 mmol/L (98-108); Creatinine, Blood 0.81 mg/dL (0.40-1.00); Glomerular Filtration Rate >60 (60-); Glucose, Blood 109 mg/dL (70-99); Magnesium, Blood 2.3 mg/dL (1.6-2.4); Phosphorus, Blood 3.4 mg/dL (2.5-4.9); Potassium, Blood 3.4 mmol/L (3.5-5.5); Sodium, Blood 137 mmol/L (136-145)
[2020-05-19 04:36] LABS: BAND PERCENT MAN 9 % (0-8); BASOPHILS PERCENT MAN 0 % (0-2); EOSINOPHILS PERCENT MAN 0 % (0-6); LYMPHOCYTES ABSOLUTE MAN 0.96 K/mm3 (0.84-5.20); LYMPHOCYTES PERCENT MAN 4 % (21-46); METAMYELOCYTE ABSOLUTE MAN 1.68 K/mm3 (0.00-0.00); METAMYELOCYTE PERCENT MAN 7 % (0-0); MONOCYTES PERCENT MAN 5 % (4-13); MYELOCYTE ABSOLUTE MAN 0.72 K/mm3 (0.00-0.00); MYELOCYTE PERCENT MAN 3 % (0-0); NEUTROPHILS ABSOLUTE MAN 19.53 K/mm3 (1.96-9.15); SEG NEUTROPHILS PERCENT MAN 72 % (41-73); TOTAL CELLS COUNTED 100
--- NOTE | 2020-05-19 04:41 | NUR ---
Called Dr. Carolina Called Dr. Carolina to update on lab results, K 3.4. New orders recieved, see emar.
--- NOTE | 2020-05-19 06:00 | NUR ---
Shift Summary Pt intubated and sedated. Propofol at 40 mcg/kg/min. Vent settings of AC 30/315/14/45%, SPO2 > 90%. RR continues to be in the 30's. Pt responds to noxious stimuli, grimace during oral care. Temp rivero in place with dark keri urine. Rectal tube in place with dark green liquid stool. SWB in place. Will report to oncoming shift.
--- NOTE | 2020-05-19 10:05 | NUR ---
ASSUMED CARE OF PT, REPORT RCV'D FROM MANI BLAKE. PT INTUBATED AND SEDATED. VENT SETTINGS AC 30/315/14/45%. PROPOFOL @ 40 MCG/KG/MIN. PT DISPLAYS FACIAL GRIMACING AND WITHDRAWAL FROM NOXIOUS/PAINFUL STIMULI. LUNG SOUNDS COARSE T/O, MODERATE AMOUNT OF THICK WHITE SPUTUM FROM ETT. VITAL HIGH PROTEIN INFUSING THROUGH DOBHOBB AT GOAL RATE OF 15 ML/HR WITH 30 ML Q4 FLUSH. TEMP TORRES PATENT AND DRAINING TO GRAVITY, CURRENT TEMP 99.0 . RECTAL TUBE PATENT DRAINING GREEN LIQUID STOOL. PROTONIX GTT @10 ML/HR INTO RIGHT PIV. PICC TO WILMER. SEE FULL SHIFT ASSESSMENT.
[2020-05-19 10:51] LABS: C DIFFICILE DNA NEGATIVE (Negative)
[2020-05-19 14:29] LABS: Vancomycin, Trough 35.1 ug/mL (5.0-10.0)
--- NOTE | 2020-05-19 18:06 | NUR ---
review of patient today in rounding will follow up for out pt care in pulmonary rehab.
--- NOTE | 2020-05-19 18:21 | NUR ---
SHIFT SUMMARY NO ACUTE CHANGES THIS SHIFT. PT REMAINS INTUBATED AND SEDATED. VENT SETTINGS AC 30/315/12/45%. PROPOFOL REMAINS AT 40 MCG/KG/MIN. PT TOLERATING TUBE FEEDING WELL WITH NO RESIDUALS THIS SHIFT. 100 ML DARK GREEN OUTPUT FROM RECTAL TUBE. 1800 ML URINARY OUTPUT. TMAX 99.7. WILL REPORT TO ONCOMING NURSE.
--- NOTE | 2020-05-19 21:23 | NUR ---
Care Assumed 1900 Pt intubated and sedated. Vent settings of AC 30/315/45%/12, SPO2 > 90%. Propofol at 40 mcg/kg/min when care assumed, see flow sheet, infusing via PICC in WILMER. Pt responds to noxious stimuli. Increased RR (40's), coughing during turns, and grimacing during oral care, treated per emar. Tube feed at VH goal of 15 ml/hr, via Dobhuff. Temp rivero patent and draining to gravity, see vital signs for temp. Rectal tube patent/draining with liquid green stools. SWB and SCD in place. SIT and VSS.
--- NOTE | 2020-05-20 01:20 | NUR ---
UPDATE Pt with increased RR (40-50's), coughing/not tolerating vent, SPO2 70's during bedbath. Treated with PRN Ativan with good effect. vent settings unchanged. Propofol at 45 mcg/kg/min.
[2020-05-20 02:40] LABS: Hemoglobin 9.3 g/dL (11.5-16.0); Mean Corpuscular HGB 30.7 pg (26.0-34.0); Mean Corpuscular HGB Conc 33.2 g/dL (31.5-36.5); Mean Corpuscular Volume 92 fL (80-100); Mean Platelet Volume 11.1 fL (9.1-12.4); NRBC ABSOLUTE 0.02 K/mm3 (0.00-0.02); NRBC Auto 0.1 /100 WBC (0.0-0.2); Platelet Count 246 K/mm3 (150-400); RDW Coefficient Variation 14.4 % (11.7-14.2); RDW Standard Deviation 48.6 fL (35.1-46.3); Red Blood Cell Count 3.03 M/mm3 (3.80-5.20); White Blood Cell Count 21.66 K/mm3 (4.00-11.30)
[2020-05-20 02:55] LABS: Albumin, Blood 1.5 g/dL (3.4-5.0); Anion Gap 9 mmol/L (6-16); Blood Urea Nitrogen 32 mg/dL (8-24); Bun/Creatinine Ratio 40.4 (12.0-20.0); CO2, Blood 25 mmol/L (21-32); Chloride, Blood 108 mmol/L (98-108); Creatinine, Blood 0.79 mg/dL (0.40-1.00); Glomerular Filtration Rate >60 (60-); Glucose, Blood 108 mg/dL (70-99); Phosphorus, Blood 3.6 mg/dL (2.5-4.9); Potassium, Blood 3.6 mmol/L (3.5-5.5); Sodium, Blood 142 mmol/L (136-145)
[2020-05-20 02:59] LABS: Vancomycin, Random 19.1 ug/mL
[2020-05-20 05:31] LABS: BAND PERCENT MAN 10 % (0-8); BASOPHILS PERCENT MAN 0 % (0-2); EOSINOPHILS ABSOLUTE MAN 0.64 K/mm3 (0.00-0.68); EOSINOPHILS PERCENT MAN 3 % (0-6); LYMPHOCYTES ABSOLUTE MAN 1.08 K/mm3 (0.84-5.20); LYMPHOCYTES PERCENT MAN 5 % (21-46); METAMYELOCYTE ABSOLUTE MAN 1.51 K/mm3 (0.00-0.00); METAMYELOCYTE PERCENT MAN 7 % (0-0); MONOCYTES ABSOLUTE MAN 1.08 K/mm3 (0.16-1.47); MONOCYTES PERCENT MAN 5 % (4-13); MYELOCYTE ABSOLUTE MAN 0.43 K/mm3 (0.00-0.00); MYELOCYTE PERCENT MAN 2 % (0-0); NEUTROPHILS ABSOLUTE MAN 16.89 K/mm3 (1.96-9.15); SEG NEUTROPHILS PERCENT MAN 68 % (41-73); TOTAL CELLS COUNTED 100
--- NOTE | 2020-05-20 06:18 | NUR ---
Shift summary Pt intubated and sedated. Propofol @ 45 mcg/kg/min. Vent settings AC 30/315/12/35%, SPO2 > 90%. Pt responds to noxious stimuli, grimace during oral care/turns. VSS. NSR to SIT. Rectal tube in place, draining green liquid stool. Temp rivero in place, TMAX 100.4, 800 urine output. TF at goal, no residuals. Will report to oncoming shift.
--- NOTE | 2020-05-20 08:02 | NUR ---
ASSUMED CARE OF PT, REPORT RCV'D FROM MANI BLAKE. PT INTUBATED AND SEDATED. VENT SETTINGS AC 30/315/12/35%, SATS 93%. PT SEDATED WITH PROPOFOL 40-45 MCG/KG/MIN. PT WITHDRAWS FROM NOXIOUS/PAINFUL STIMULI. LUNG SOUNDS COARSE WITH EXPIRATORY WHEEZE, MODERATE AMOUNT OF THICK WHITE SPUTUM FROM ETT. VSS AT THIS TIME. TEMP TORRES AND RECTAL TUBE PATENT AND DRAINING TO GRAVITY. SEE FULL SHIFT ASSESSMENT.
--- NOTE | 2020-05-20 18:34 | NUR ---
SHIFT SUMMARY NO ACUTE CHANGES THIS SHIFT. VENT SETTINGS 30/315/10/35%. PROPOFOL REMAINS AT 40 MCG/KG/MIN. MINIMUM AMOUNT OF THICK WHITE SECRETIONS FROM ETT. PT TOLERATING TUBE FEEDS WELL WITH NO RESIDUALS. 2900 ML URINARY OUTPUT. 200 ML GREEN STOOL FROM RECTAL TUBE. TMAX 100.7. VSS T/O SHIFT. PT'S AT BEDSIDE DURING VISITING HOURS. UPDATED WITH PT'S STATUS AND PLAN OF CARE. WILL REPORT TO ONCOMING NURSE.
--- NOTE | 2020-05-20 20:00 | NUR ---
Care Assumed 1900 Pt intubated and sedated. Vent settings AC 30/315/8/40%, SPO2 > 90%. Propofol GTT 40 mcg/kg/min. Pt grimaces during oral care. VSS. SIT. Temp rivero in place, draining to gravity. Rectal tube in place with liquid green stools SWB. SCD's on. See shift assessment.
[2020-05-21 03:53] LABS: Hemoglobin 9.3 g/dL (11.5-16.0); Mean Corpuscular HGB Conc 34.4 g/dL (31.5-36.5); Mean Corpuscular Volume 90 fL (80-100); Mean Platelet Volume 10.6 fL (9.1-12.4); Platelet Count 325 K/mm3 (150-400); RDW Coefficient Variation 13.6 % (11.7-14.2); RDW Standard Deviation 44.5 fL (35.1-46.3); White Blood Cell Count 23.24 K/mm3 (4.00-11.30)
[2020-05-21 04:12] LABS: Albumin, Blood 1.5 g/dL (3.4-5.0); Anion Gap 7 mmol/L (6-16); Blood Urea Nitrogen 30 mg/dL (8-24); Bun/Creatinine Ratio 39.5 (12.0-20.0); CO2, Blood 29 mmol/L (21-32); Calcium, Blood 7.7 mg/dL (8.5-10.1); Chloride, Blood 108 mmol/L (98-108); Creatinine, Blood 0.76 mg/dL (0.40-1.00); Glomerular Filtration Rate >60 (60-); Glucose, Blood 113 mg/dL (70-99); Magnesium, Blood 2.5 mg/dL (1.6-2.4); Phosphorus, Blood 3.1 mg/dL (2.5-4.9); Sodium, Blood 144 mmol/L (136-145); Vancomycin, Trough 18.2 ug/mL (5.0-10.0)
--- NOTE | 2020-05-21 04:47 | NUR ---
Update - Provider call Called Dr. Carolina in regards to pts potassium. Provider to place orders. Pt on propofol at 45 mcg/kg/min via PICC in [place]. Vent settings of AC 30/315/8/40%. Spo2 > 90%. Thick white secreations during oral care. NSR. HR 90'S. Pt grimaces during oral care. No movement seen in upper/lower extrems. SWB in place. Mcdaniel and rectal tube draining to gravity. Pt tolerating VH TF at goal of 15 ml/hr.
[2020-05-21 05:35] LABS: BAND PERCENT MAN 6 % (0-8); BASOPHILS PERCENT MAN 0 % (0-2); EOSINOPHILS ABSOLUTE MAN 0.69 K/mm3 (0.00-0.68); EOSINOPHILS PERCENT MAN 3 % (0-6); LYMPHOCYTES ABSOLUTE MAN 2.09 K/mm3 (0.84-5.20); LYMPHOCYTES PERCENT MAN 9 % (21-46); METAMYELOCYTE ABSOLUTE MAN 1.62 K/mm3 (0.00-0.00); METAMYELOCYTE PERCENT MAN 7 % (0-0); MONOCYTES ABSOLUTE MAN 2.09 K/mm3 (0.16-1.47); MONOCYTES PERCENT MAN 9 % (4-13); MYELOCYTE ABSOLUTE MAN 0.23 K/mm3 (0.00-0.00); MYELOCYTE PERCENT MAN 1 % (0-0); SEG NEUTROPHILS PERCENT MAN 65 % (41-73); TOTAL CELLS COUNTED 100
--- NOTE | 2020-05-21 05:59 | NUR ---
Shift Summary Vent settings unchanged. Propofol GTT 45 mcg/kg/min via PICC to WILMER. Mcdaniel and rectal tube draining to gravity. VSS. SIT to NSR. Dobbhoff with VH TF at goal of 15 ml/hr. No significant changes. Will report to oncoming shift.
--- NOTE | 2020-05-21 09:44 | NUR ---
ASSUMED CARE OF PT, REPORT RCV'D FROM MANI BLAKE. PT INTUBATED AND SEDATED. VENT SETTINGS AC 30/315/8/40%. PROPOFOL @40 MCG/KG/MIN. PT WITHDRAWS FROM PAINFUL STIMULI, FACIAL GRIMACING WITH ORAL CARE AND REPOSITIONING. EXPIRATORY WHEEZE BILATERAL UPPER LOBES, DIM BASES. SMALL AMOUNT THICK WHITE SPUTUM FROM ETT. RECTAL TUBE AND TORRES PATENT AND DRAINING TO GRAVITY. VSS AT THIS TIME. VITAL HIGH PROTEIN @ 15 ML/HR (GOAL RATE). SEE FULL SHIFT ASSESSMENT
--- NOTE | 2020-05-21 12:30 | NUR ---
CALLED PT'S AND UPDATED ON PT STATUS. REQUESTED MATEUS () TO CALL PT'S MOTHER AND UPDATE HER. MATEUS AGREED TO UPDATE.
--- NOTE | 2020-05-21 18:21 | NUR ---
SHIFT SUMMARY NO ACUTE CHANGES T/O SHIFT. PT'S VSS, TMAX 100.4. VENT SETTING REMAIN 30/315/8/40%. PROPOFOL @ 40 MCG/KG/MIN. 600 ML GREEN OUTPUT FROM RECTAL TUBE. 2800 ML URINARY OUTPUT. PT TOLERATED REPOSITIONING, BED BATH, BEDDING CHANGE AND ORAL CARE WELL. PT'S AND BEDSIDE MOST OF THE DAY. WILL REPORT TO ONCOMING NURSE.
--- NOTE | 2020-05-21 20:52 | NUR ---
Care Assumed 1900 Pt intubated and sedated. Vent settings AC 30/315/8/40%, SPO2 > 90%. Propofol GTT at 40 mcg/kg/min when care assumed, titerated, now 50 mcg/kg/min. Pt not tolerating vent, coughing spells with moderate amount of thick secreations from ETT suction and oral care. Treated with PRN Ativan as well. RR 30's. NSR. VSS. Rectal tube and temp rivero draining to gravity. TF at goal of 15 ml/hr, residual of 0. See full shift assessment.
[2020-05-22 03:25] LABS: Hematocrit 28.8 % (33.0-51.0); Hemoglobin 9.5 g/dL (11.5-16.0); LYMPHOCYTES ABSOLUTE AUTO 1.82 K/mm3 (0.84-5.20); LYMPHOCYTES PERCENT AUTO 8 % (21-46); MONOCYTES ABSOLUTE AUTO 1.76 K/mm3 (0.16-1.47); MONOCYTES PERCENT AUTO 8 % (4-13); Mean Corpuscular HGB 30.8 pg (26.0-34.0); Mean Corpuscular Volume 94 fL (80-100); Mean Platelet Volume 10.6 fL (9.1-12.4); NRBC ABSOLUTE 0.02 K/mm3 (0.00-0.02); NRBC Auto 0.1 /100 WBC (0.0-0.2); Platelet Count 361 K/mm3 (150-400); RDW Coefficient Variation 13.6 % (11.7-14.2); RDW Standard Deviation 46.1 fL (35.1-46.3); Red Blood Cell Count 3.08 M/mm3 (3.80-5.20); White Blood Cell Count 22.71 K/mm3 (4.00-11.30)
[2020-05-22 03:29] LABS: BASOPHILS ABSOLUTE AUTO 0.07 K/mm3 (0.00-0.23); BASOPHILS PERCENT AUTO 0 % (0-2); EOSINOPHILS ABSOLUTE AUTO 0.51 K/mm3 (0.00-0.68); EOSINOPHILS PERCENT AUTO 2 % (0-6); IMMATURE GRAN ABSOLUTE AUTO 5.49 K/mm3 (0.00-0.10); IMMATURE GRAN PERCENT AUTO 24 % (0-1); NEUTROPHILS ABSOLUTE AUTO 13.06 K/mm3 (1.96-9.15); NEUTROPHILS PERCENT AUTO 58 % (41-73)
[2020-05-22 03:43] LABS: Alanine Aminotransfer (ALT/SGP 62 U/L (12-78); Albumin, Blood 1.5 g/dL (3.4-5.0); Albumin/Globulin Ratio 0.4 (0.8-1.8); Alk Phos 141 U/L (50-136); Anion Gap 8 mmol/L (6-16); Aspartate Aminotrans (AST/SGOT 86 U/L (12-37); Blood Urea Nitrogen 28 mg/dL (8-24); CO2, Blood 27 mmol/L (21-32); Calcium, Blood 7.7 mg/dL (8.5-10.1); Chloride, Blood 109 mmol/L (98-108); Glomerular Filtration Rate >60 (60-); Glucose, Blood 114 mg/dL (70-99); Magnesium, Blood 2.3 mg/dL (1.6-2.4); Phosphorus, Blood 3.3 mg/dL (2.5-4.9); Potassium, Blood 3.3 mmol/L (3.5-5.5); Sodium, Blood 144 mmol/L (136-145); Total Protein, Blood 5.5 g/dL (6.4-8.2)
[2020-05-22 04:01] LABS: BAND PERCENT MAN 12 % (0-8); BASOPHILS PERCENT MAN 0 % (0-2); EOSINOPHILS PERCENT MAN 4 % (0-6); LYMPHOCYTES ABSOLUTE MAN 1.58 K/mm3 (0.84-5.20); LYMPHOCYTES PERCENT MAN 7 % (21-46); METAMYELOCYTE ABSOLUTE MAN 1.36 K/mm3 (0.00-0.00); METAMYELOCYTE PERCENT MAN 6 % (0-0); MONOCYTES ABSOLUTE MAN 0.45 K/mm3 (0.16-1.47); MONOCYTES PERCENT MAN 2 % (4-13); NEUTROPHILS ABSOLUTE MAN 18.39 K/mm3 (1.96-9.15); SEG NEUTROPHILS PERCENT MAN 69 % (41-73); TOTAL CELLS COUNTED 100
--- NOTE | 2020-05-22 04:37 | NUR ---
Update provider called Dr. Carolina called in regards to patients Potassium. Orders recieved, see emar. Also, orders recieved for electrolyte protocol. Pt with increased agitation. Propofol GTT 50 mcg/kg/min. Treated with PRN Fentanyl 25 mcg. Not following commands. Pts rectal tube found to be dislodged. Moderate amount of green liquid stools. Rectal tube reinserted. VSS. NSR. Vent settings unchanged.
--- NOTE | 2020-05-22 06:09 | NUR ---
Shift Summary Pt intubated and sedated. Vent settings unchanged. Propofol GTT 40 mcg/kg/min. Pt openes eyes but is not tracking. Unable to follow commands at this moment. VH at goal of 15 ml/hr. Rectal tube with scant output due to pt having moderate sized green liquid stool earlier in shift from rectal tube being disloged. Temp rivero in place, draining to gravity. VSS. NSR. SWB and SCD's in place. Will report to oncomign shift.
--- NOTE | 2020-05-22 10:00 | NUR ---
ASSUMED CARE / DR BENDER: REPORT RECEIVED FROM HAYDEN Michel RN. ASSUMED CARE OF THIS PT AT APPROX 0700. ON ASSESSMENT, THE PT IS RESTING QUIETLY. INTUBATED W/ 7.5 ETT NOTED TO BE 23.0 CM MARTIN. SHE IS SEDATED W/ PROPOFOL INFUSING AT 45 MCG/KG/MIN. WITHDRAWS ALL EXTREMITIES & GRIMACEDS TO PAINFUL STIMULUS, BUT IS AGITATED & UNABLE TO FOLLOW DIRECTIONS. LS ARE COARSE T/O, VENT SETTINGS: AC 30/315/8/40% W/ O2 SATS > 92%. MOD AMNTS THICK GALEANO SPUTUM SUCTIONED THROUGH ETT. MONITOR SHOWS SR W/ HR 90-100s, BP STABLE. DOBHOFF IN PLACE TO R NARE W/ VITAL HP TF INFUSING AT GOAL RATE OF 15 ML/HR W/ 40 ML H2O FLUSH Q4H. RECTAL TUBE PATENT/ DRAINING GREEN-BROWN LIQUID STLS. TEMP TORRES PATENT/ DRAINING YELLOW URINE. SKIN CONDITION OVERALL CDI W/ Q2H REPOSITIONING TO MAINTAIN SKIN INTEGRITY. DR BENDER AT BEDSIDE THIS AM TO EVAL PT. SHE WILL REMAIN INTUBATED TODAY R/T COARSE LS & THICK SECRETIONS. VENT SETTINGS CHANGED SLIGHTLY W/ AC RATE DECREASED FROM 30 TO 20 & VMAX INCREASED FROM 70 TO 85, ILEANA D, RT, IS AWARE. ORDERS PLACED FOR AM LABS, NO OTHER CHANGES AT THIS TIME. WILL CONTINUE TO MONITOR & UPDATE NEEDED.
--- NOTE | 2020-05-22 17:53 | NUR ---
SHIFT SUMMARY: NO ACUTE CHANGES SINCE PRIOR UPDATES. PT REMAINS SEDATED & INTUBATED. WITHDRAWS ALL EXTREMITIES & GRIMACES TO PAINFUL STIMULUS BUT DOES NOT FOLLOW DIRECTIONS. LS COARSE T/O, VENT SETTINGS: AC 20/315/8/45% W/ O2 SATS > 92%. MONITOR SHOWS SR-ST W/ HR 90-100s, BP STABLE. DOBHOFF REMAINS IN PLACE W/ VHP INFUSING AT GOAL RATE. RECTAL TUBE PATENT/ DRAINING SCANT AMNTS DARK GREEN-BROWN LIQUID STLS. TEMP TORRES PATENT/ DRAINING DARK YELLOW URINE. TMAX 100.2 TODAY. SKIN CONDITION OVERALL CDI. WILL CONTINUE TO MONITOR & REPORT OFF TO ONCOMING RN.
--- NOTE | 2020-05-22 19:34 | NUR ---
ASSUMED CARE: ASSUMED CARE FROM VINH SINGLETON. PT SEDATED AND RESTRAINED. PERCY AT 4MM BILAT. LS CLEAR T/O DIMINISHED N THE BASES WITH BIOX 97 % ON VENT SETTING AC 20, TV 315, FIO2 40% AND PEEP 8. RR 28 AND PEAK PRESSURES 27. HEART SOUNDS S1 AND S2 AUSCULTATED WITH MONITOR SHOWING NSR WITH HR 92. SKIN PINK, WARM AND DRY. PPP BILAT WITH PAS ON AND PUMPING. TRACE EDEMA IN LE'S AND 2+ PITTING IN BILAT HANDS. TRIPLE LUMEN PICC WILMER WITH 5CM OUT. PROPOFOL @ 45MCG/KG/MIN= 23CC/HR. NS @ 10CC/HR. NS @ 10CC/HR. ABD R/O WITH HYPO BTX4. TUBE FEEDING VITAL HP @ 15CC/HR WITH 30CC/4HR FLUSH THRU DOBHOFF IN R NARE. FLEXISEAL DRAINING LIQUID GREEN. TORRES DRAINING CLEAR YELLOW URINE.
[2020-05-23 03:41] LABS: PCO2 Arterial 38.1 mmHg (35-45); PO2 Arterial 76.5 mmHg (80-100); pH Blood Arterial 7.47 (7.35-7.45)
[2020-05-23 03:56] LABS: BASOPHILS ABSOLUTE AUTO 0.09 K/mm3 (0.00-0.23); BASOPHILS PERCENT AUTO 1 % (0-2); Hemoglobin 8.9 g/dL (11.5-16.0); LYMPHOCYTES ABSOLUTE AUTO 1.53 K/mm3 (0.84-5.20); LYMPHOCYTES PERCENT AUTO 10 % (21-46); MONOCYTES ABSOLUTE AUTO 1.46 K/mm3 (0.16-1.47); MONOCYTES PERCENT AUTO 9 % (4-13); Mean Corpuscular HGB 29.9 pg (26.0-34.0); Mean Corpuscular HGB Conc 31.8 g/dL (31.5-36.5); Mean Corpuscular Volume 94 fL (80-100); Mean Platelet Volume 10.5 fL (9.1-12.4); Platelet Count 363 K/mm3 (150-400); RDW Coefficient Variation 13.7 % (11.7-14.2); RDW Standard Deviation 46.6 fL (35.1-46.3); Red Blood Cell Count 2.98 M/mm3 (3.80-5.20); White Blood Cell Count 15.82 K/mm3 (4.00-11.30)
[2020-05-23 03:58] LABS: EOSINOPHILS ABSOLUTE AUTO 0.41 K/mm3 (0.00-0.68); EOSINOPHILS PERCENT AUTO 3 % (0-6); IMMATURE GRAN ABSOLUTE AUTO 2.79 K/mm3 (0.00-0.10); IMMATURE GRAN PERCENT AUTO 18 % (0-1); NEUTROPHILS ABSOLUTE AUTO 9.54 K/mm3 (1.96-9.15); NEUTROPHILS PERCENT AUTO 60 % (41-73)
[2020-05-23 04:13] LABS: Alanine Aminotransfer (ALT/SGP 49 U/L (12-78); Albumin, Blood 1.7 g/dL (3.4-5.0); Albumin/Globulin Ratio 0.4 (0.8-1.8); Alk Phos 126 U/L (50-136); Anion Gap 6 mmol/L (6-16); Aspartate Aminotrans (AST/SGOT 60 U/L (12-37); Bilirubin, Total 0.8 mg/dL (0.1-1.0); Blood Urea Nitrogen 30 mg/dL (8-24); CO2, Blood 28 mmol/L (21-32); Calcium, Blood 7.7 mg/dL (8.5-10.1); Chloride, Blood 112 mmol/L (98-108); Creatinine, Blood 0.73 mg/dL (0.40-1.00); Glomerular Filtration Rate >60 (60-); Glucose, Blood 110 mg/dL (70-99); Magnesium, Blood 2.5 mg/dL (1.6-2.4); Phosphorus, Blood 3.8 mg/dL (2.5-4.9); Potassium, Blood 3.3 mmol/L (3.5-5.5); Sodium, Blood 146 mmol/L (136-145); Total Protein, Blood 5.7 g/dL (6.4-8.2)
[2020-05-23 05:35] LABS: BAND PERCENT MAN 6 % (0-8); BASOPHILS PERCENT MAN 0 % (0-2); EOSINOPHILS ABSOLUTE MAN 0.31 K/mm3 (0.00-0.68); EOSINOPHILS PERCENT MAN 2 % (0-6); LYMPHOCYTES ABSOLUTE MAN 1.58 K/mm3 (0.84-5.20); LYMPHOCYTES PERCENT MAN 10 % (21-46); METAMYELOCYTE ABSOLUTE MAN 0.31 K/mm3 (0.00-0.00); METAMYELOCYTE PERCENT MAN 2 % (0-0); MONOCYTES ABSOLUTE MAN 0.94 K/mm3 (0.16-1.47); MONOCYTES PERCENT MAN 6 % (4-13); MYELOCYTE ABSOLUTE MAN 0.15 K/mm3 (0.00-0.00); MYELOCYTE PERCENT MAN 1 % (0-0); NEUTROPHILS ABSOLUTE MAN 12.49 K/mm3 (1.96-9.15); SEG NEUTROPHILS PERCENT MAN 73 % (41-73); TOTAL CELLS COUNTED 100
--- NOTE | 2020-05-23 06:31 | NUR ---
SHIFT SUMMARY: PT DID WELL THROUGHOUT THE NIGHT, FIO2 WAS TITRATED DOWN TO 35%. LS REMAIN CLEAR DIMINISHED IN THE BASES. NO ACUTE CHANGES THROUGHOUT THE NIGHT.
--- NOTE | 2020-05-23 07:15 | NUR ---
ASSUMED CARE: REPORT RECEIVED FROM SUKH Hernandez RN. ASSUMED CARE OF THIS PT AT APPROX 0700. ON ASSESSMENT, THE PT IS SEDATED W/ PROPOFOL & INTUBATED W/ A 7.5 ETT NOTED TO BE 23.0 CM MARTIN. SHE IS RESPONSIVE TO PAINFUL STIMULUS BUT BECOMES AGITATED, COUGHING & WILL NOT FOLLOW DIRECTIONS. LS COARSE, PT ON VENT W/ SETTINGS: AC 20/315/8/35% W/ O2 SATS > 92%. MONITOR SHOWS SR W/ HR 90s, BP STABLE. NGT TO R NARE W/ VHP INFUSING AT GOAL RATE OF 15 ML/HR W/ 30 ML H2O FLUSH Q4H. TEMP TORRES PATENT/ DRAINING CLEAR YELLOW URINE. SKIN CONDITION OVERALL CDI. WILL CONTINUE TO MONITOR & UPDATE NEEDED.
--- NOTE | 2020-05-23 10:47 | NUR ---
SEDATION VACATION / DR BENDER: PT's SEDATION HAS BEEN LIGHTENED TO 20 MCG/KG/MIN & PT IS NOW AWAKE W/ EYES OPEN. SHE IS TRACKING W/ EYES BUT FOLLOWING NO DIRECTIONS WHEN INSTRUCTED. DR BENDER AT BEDSIDE DURING THIS TIME & HAS CHANGED VENT SETTINGS TO SPONTANEOUS W/ PS 8, PEEP 5 & 35% FIO2. THE PT REMAINS TACHYPNEIC & DR BENDER HAS NO PLANS TO EXTUBATE TODAY BUT WOULD LIKE THE PT TO REMAIN ON SPONTANEOUS FOR LONG POSSIBLE, DEPENDENT ON HER TOLERANCE OF THIS. NILSA Escobar, RT, AWARE OF CHANGES MADE.
--- NOTE | 2020-05-23 17:23 | NUR ---
SHIFT SUMMARY: NO ACUTE CHANGES SINCE PRIOR UPDATES. PT HAS NODDED HEAD "YES" TO BEING TIRED & WHEN ASKED IF SHE WOULD LIKE TO GO BACK TO SLEEP SHE ALSO NODS "YES." SEDATION HAS BEEN RESUMED & NILSA R, RT, AT BEDSIDE TO RESUME AC MODE ON VENT. SETTINGS NOW AC 20/315/5/30%, O2 SATS > 92%. MONITOR SHOWS SR-ST W/ HR 90-100s, BP STABLE. DOBHOFF IN PLACE TO RT NARE W/ TUBE FEED OF VHP INFUSING AT GOAL RATE OF 15 ML/HR, H2O FLUSH HAS BEEN INCREASED TO 100 ML Q4H R/T PT's INCREASING SODIUM LEVEL. PT HAS HAD ONE LARGE LIQUID BM SINCE RECTAL TUBE REMOVAL, GREEN-BROWN IN COLOR. TEMP TORRES PATENT/ DRAINING CLEAR YELLOW URINE. SKIN CONDITION OVERALL CDI. WILL CONTINUE TO MONITOR & REPORT OFF TO ONCOMING RN.
--- NOTE | 2020-05-23 17:34 | NUR ---
Spiritual care note: Lary was awake and on ventilator. She squeezed my hand appropriately and nodded yes and no to questions. I prayed for her and gently explained her progress. Later met with spouse, Zia, at bedside and prayer provided again. Zia feels elated that pt has made good progress. I will remain available.
--- NOTE | 2020-05-23 18:00 | NUR ---
Review of pt with nurse pt on weaning trial. will follow up [facility] plan for post extubation.
--- NOTE | 2020-05-23 21:15 | NUR ---
Care Assumed 1900 Report recieved from Artur Tsai RN. Pt sedated with propofol and intubated. Vent settings AC 20/315/5/30%, SPO2 > 90%. Pt responds to painful stimuli and opens eyes spontaneously but not tracking/following commands. NSR. VSS. NGT to R nare with NGP infusing at goal of 15 ml/hr. Temp rivero draining to gravity with clear yellow urine. Will continue to monitor.
--- NOTE | 2020-05-24 03:35 | NUR ---
UPDATE VENT SETTINGS UNCHANGED. PT WITH INCREASED AGITATION, CHEWING ON TUBE, UNABLE TO FOLLOW COMMANDS. OPENS EYES BUT NOT TRACKING. FREQUENT COUGHING, ETT SUCTIONING AND ORAL CARE PROVIDED. THICK SECREATIONS. PROPOFOL GTT 50 MCG/KG/MIN. SWB AND SCD'S IN PLACE.
[2020-05-24 04:16] LABS: BASOPHILS ABSOLUTE AUTO 0.04 K/mm3 (0.00-0.23); BASOPHILS PERCENT AUTO 0 % (0-2); EOSINOPHILS ABSOLUTE AUTO 0.38 K/mm3 (0.00-0.68); EOSINOPHILS PERCENT AUTO 3 % (0-6); Hematocrit 28.1 % (33.0-51.0); IMMATURE GRAN ABSOLUTE AUTO 0.95 K/mm3 (0.00-0.10); IMMATURE GRAN PERCENT AUTO 8 % (0-1); LYMPHOCYTES ABSOLUTE AUTO 1.41 K/mm3 (0.84-5.20); LYMPHOCYTES PERCENT AUTO 13 % (21-46); MONOCYTES ABSOLUTE AUTO 1.03 K/mm3 (0.16-1.47); MONOCYTES PERCENT AUTO 9 % (4-13); Mean Corpuscular HGB 30.7 pg (26.0-34.0); Mean Corpuscular Volume 96 fL (80-100); Mean Platelet Volume 10.8 fL (9.1-12.4); NEUTROPHILS ABSOLUTE AUTO 7.49 K/mm3 (1.96-9.15); NEUTROPHILS PERCENT AUTO 66 % (41-73); Platelet Count 348 K/mm3 (150-400); RDW Coefficient Variation 14.2 % (11.7-14.2); RDW Standard Deviation 47.8 fL (35.1-46.3); Red Blood Cell Count 2.93 M/mm3 (3.80-5.20)
[2020-05-24 04:38] LABS: Alanine Aminotransfer (ALT/SGP 49 U/L (12-78); Albumin, Blood 1.8 g/dL (3.4-5.0); Albumin/Globulin Ratio 0.4 (0.8-1.8); Alk Phos 125 U/L (50-136); Anion Gap 7 mmol/L (6-16); Aspartate Aminotrans (AST/SGOT 67 U/L (12-37); Bilirubin, Total 0.7 mg/dL (0.1-1.0); Blood Urea Nitrogen 28 mg/dL (8-24); Bun/Creatinine Ratio 38.3 (12.0-20.0); CO2, Blood 27 mmol/L (21-32); Calcium, Blood 8.1 mg/dL (8.5-10.1); Chloride, Blood 112 mmol/L (98-108); Creatinine, Blood 0.73 mg/dL (0.40-1.00); Globulin, Blood 4.2 g/dL (2.2-4.0); Glomerular Filtration Rate >60 (60-); Glucose, Blood 107 mg/dL (70-99); Magnesium, Blood 2.2 mg/dL (1.6-2.4); Phosphorus, Blood 3.2 mg/dL (2.5-4.9); Potassium, Blood 3.2 mmol/L (3.5-5.5); Sodium, Blood 146 mmol/L (136-145)
[2020-05-24 05:09] LABS: PCO2 Arterial 35.8 mmHg (35-45); pH Blood Arterial 7.48 (7.35-7.45)
[2020-05-24 05:32] LABS: BASOPHILS PERCENT MAN 0 % (0-2); EOSINOPHILS ABSOLUTE MAN 0.56 K/mm3 (0.00-0.68); EOSINOPHILS PERCENT MAN 5 % (0-6); LYMPHOCYTES ABSOLUTE MAN 1.13 K/mm3 (0.84-5.20); LYMPHOCYTES PERCENT MAN 10 % (21-46); MONOCYTES PERCENT MAN 8 % (4-13); MYELOCYTE ABSOLUTE MAN 0.22 K/mm3 (0.00-0.00); MYELOCYTE PERCENT MAN 2 % (0-0); NEUTROPHILS ABSOLUTE MAN 8.47 K/mm3 (1.96-9.15); SEG NEUTROPHILS PERCENT MAN 75 % (41-73); TOTAL CELLS COUNTED 100
--- NOTE | 2020-05-24 06:51 | NUR ---
SBT AND SEDATION VACATION 0430 PT PLACED ON PS 5/5, 30% AND PROPOFOL PLACED ON STANDBY. Pt able to follow commands, answer questions by nodding yes/no, fire chief strength strong, and able to move lower extrems. Pt able to state that she would like to watch TV and picked the channel that she wanted to watch. Pt left on PS and Propofol on standby. Pt able to state when she would like to go "back to sleep." VSS. SPO2 > 90%.
--- NOTE | 2020-05-24 06:58 | NUR ---
Shift Summary Pt continues to have sedation on standby and vent settings of PS 5/5, 30%. Pt tolerating current settings well. Sitting in bed watching TV. See SBT and sedation note. Pt able to state when she is in back. Nods yes to being in pain, nods yes to having back pain, treated with Fentanyl PRN. Mcdaniel in place, draining to gravity (dark cloudy keri urine). VH at goal of 15 ml/hr. VSS. NSR. Will report to oncoming shift. SCD's removed due to pt request.
--- NOTE | 2020-05-24 11:55 | NUR ---
ASSUMED CARE OF PT, REPORT RCV'D FROM MANI BLAKE. PT ALERT TO VERBAL STIMULI AND ABLE TO FOLLOW SIMPLE COMMANDS. PT MOVES ALL EXTREMETIES WEAKLY. PT REMAINS INTUBATED ON SPONTANEOUS MODE 5/5 25%. PROPOFOL ON STANDBY. PT MEDICATED WITH ATIVAN NEEDED FOR ANXIETY. RECTAL TUBE PLACED BY OFF GOING NURSE D/T VERY LARGE LIQUID BOWEL MOVEMENT. PT HAS TEMP TORRES, PATENT AND DRAINING TO GRAVITY. PT HAS RASH TO RIGHT FLANK, PER NOC SHIFT NURSE THIS IS NEW. WILL CONTINUE TO MONITOR. PLAN TO POSSIBLY EXTUBATE THIS AFTERNOON. PT AND FAMILY UPDATED WITH PLAN OF CARE. SEE FULL SHIFT ASSESSMENT.
--- NOTE | 2020-05-24 14:22 | NUR ---
PT EXTUBATED AT 1409 AND PLACED ON 4L NC. SATS 93-94%. PT HAS STRONG NON PRODUCTIVE COUGH. PT REMAINS ALERT AND ORIENTED, FOLLOWS COMMANDS WEAKLY. BED IN LOW/LOCKED POSITION. CALL LIGHT IN HAND.
--- NOTE | 2020-05-24 15:59 | NUR ---
Spiritual care note: Provided supportive visit and prayer to pt and spouse. Pt sleepy, confused. I will remain available.
--- NOTE | 2020-05-24 18:36 | NUR ---
SHIFT SUMMARY PT REMAINS ALERT, SLEEPY, FOLLOWS COMMANDS. MOVES ALL EXTREMETIES BUT WEAK. WEAK NON PRODUCTIVE COUGH. SATS 93% ON 2L NC. OT TO ROOM TO EVALUATE PT BUT UNABLE TO WORK WITH HER D/T WEAKNESS, RECOMMENDS MEDICAL OFFICE REPRESENTATIVE INVOLVEMENT WITH POSSIBLE DISCHARGE TO SNF FOR REHABILITATION. DOBHOFF INFUSING VITAL HIGH PROTEIN AT GOAL RATE OF 15 ML/HR WITH 100ML Q4 FLUSH. 1850 URINARY OUTPUT. NO OUTPUT FROM RECTAL TUBE. TMAX 99.6, ALL ADDITIONAL VSS T/O SHIFT. PICC LINE CHANGED. WILL REPORT TO ONCOMING NURSE.
--- NOTE | 2020-05-24 20:42 | NUR ---
Care Assumed 1900 Pt sitting in bed watching TV. Able to follow commands, slow to respond but able to answer questions as well. Patient states having back pain and asking for water. Pt given mouth swabs and updated on the importance of gaining strength back before diet can be advanced. Very weak, not able to move extrems without assistance. Pt appears anxious during bedbath but tolerated well. Treated with Ativan with good effect. Hypertensive during bedbath, SBP 110's after bath/treated with Ativan for anxiety. Pt had temp rivero in place, draining to gravity (98.7). Pt has rash/redness on upper/lower back, appears to be a heat rash. During bedbath fan applied, cool cloth to back, and temp decreased in room. Pt states the fan on her face is helpful. Pt on 2 L via NC, SPO2 > 90%. Occasional congested cough. VSS. NSR.
--- NOTE | 2020-05-25 05:13 | NUR ---
Update Pt unable to state where she is, asking for her and water. Updated on current location, event, and date. Able to follow commands. Calm and cooperative. Oral care and frequent oral swabs provided with good effect. Pt continues to have redness on back, ice pack applied along with fan. Will report to oncoming shift. VSS. NSR.
[2020-05-25 05:17] LABS: BASOPHILS ABSOLUTE AUTO 0.03 K/mm3 (0.00-0.23); BASOPHILS PERCENT AUTO 0 % (0-2); EOSINOPHILS ABSOLUTE AUTO 0.35 K/mm3 (0.00-0.68); EOSINOPHILS PERCENT AUTO 4 % (0-6); Hematocrit 28.9 % (33.0-51.0); Hemoglobin 9.1 g/dL (11.5-16.0); IMMATURE GRAN ABSOLUTE AUTO 0.21 K/mm3 (0.00-0.10); IMMATURE GRAN PERCENT AUTO 2 % (0-1); LYMPHOCYTES ABSOLUTE AUTO 1.32 K/mm3 (0.84-5.20); LYMPHOCYTES PERCENT AUTO 14 % (21-46); MONOCYTES ABSOLUTE AUTO 0.88 K/mm3 (0.16-1.47); MONOCYTES PERCENT AUTO 9 % (4-13); Mean Corpuscular HGB 30.3 pg (26.0-34.0); Mean Corpuscular HGB Conc 31.5 g/dL (31.5-36.5); Mean Corpuscular Volume 96 fL (80-100); NEUTROPHILS ABSOLUTE AUTO 6.54 K/mm3 (1.96-9.15); NEUTROPHILS PERCENT AUTO 70 % (41-73); Platelet Count 347 K/mm3 (150-400); RDW Coefficient Variation 14.6 % (11.7-14.2); RDW Standard Deviation 49.6 fL (35.1-46.3); White Blood Cell Count 9.33 K/mm3 (4.00-11.30)
[2020-05-25 05:40] LABS: Alanine Aminotransfer (ALT/SGP 45 U/L (12-78); Albumin, Blood 1.8 g/dL (3.4-5.0); Albumin/Globulin Ratio 0.4 (0.8-1.8); Alk Phos 107 U/L (50-136); Anion Gap 6 mmol/L (6-16); Aspartate Aminotrans (AST/SGOT 57 U/L (12-37); Bilirubin, Total 0.6 mg/dL (0.1-1.0); Blood Urea Nitrogen 26 mg/dL (8-24); Bun/Creatinine Ratio 39.2 (12.0-20.0); CO2, Blood 27 mmol/L (21-32); Chloride, Blood 112 mmol/L (98-108); Creatinine, Blood 0.66 mg/dL (0.40-1.00); Globulin, Blood 4.1 g/dL (2.2-4.0); Glomerular Filtration Rate >60 (60-); Glucose, Blood 97 mg/dL (70-99); Magnesium, Blood 2.4 mg/dL (1.6-2.4); Phosphorus, Blood 3.6 mg/dL (2.5-4.9); Potassium, Blood 3.6 mmol/L (3.5-5.5); Sodium, Blood 145 mmol/L (136-145); Total Protein, Blood 5.9 g/dL (6.4-8.2)
--- NOTE | 2020-05-25 06:47 | NUR ---
Shift Summary Pt able to follow commands, asking questions, and able to make needs known. Pt continues to have redness/warmth to back. Able to tolerate being turned side/side, ice packs and fan applied. Pt states ice packs "feel nice." VSS. NSR. Rectal tube in palce with scant amount of liquid green/brown stool in place. Temp rivero in place, draining to gravity. Spoke to patients and updated on pt status. wanted patient to know he would be visiting at 0300 PM. Relayed message to patient. Pt smiling after this and nodding yes with tears in eyes.
--- NOTE | 2020-05-25 09:57 | NUR ---
ASSUMED CARE OF PT, REPORT RCV'D FROM MANI BLAKE. PT ALERT AND ORIENTED, FOLLOWS COMMANDS AND COOPERATIVE WITH CARE. PT MOVES ALL EXTREMITIES WEAKLY, VERY MOTIVATED TO WORK WITH PT/OT. PRACTICES MOVEMENTS INDEPENDENTLY. PT CURRENTLY ON 1L NC WITH SATS>90%. LUNG SOUNDS CLEAR TO DIM T/O. NO COUGH OR DIFFICULTY BREATHING. DOBHOFF SECURELY IN PLACE INFUSING VITAL HIGH PROTEIN AT GOAL RATE 15 ML'HR WITH 100 ML Q4 FLUSH. TORRES PATENT AND DRAINING TO GRAVITY. RECTAL TUBE PATENT DRAINING DARK GREEN/BROWN WATERY STOOL. VSS. SEE FULL SHIFT ASSESSMENT.
--- NOTE | 2020-05-25 15:06 | NUR ---
PT TRANSFERRED TO ROOM 359 AT 1440.
--- NOTE | 2020-05-25 17:56 | NUR ---
SHIFT SUMMARY PT AXO, PLEASANT AND COOPERATIVE WITH CARE THOUGH FORGETFUL AND ALMOST CHILD-LIKE AFFECT. PT FIXATED ON ORAL INTAKE. PT EDUCATED ON CONTRAINDICATIONS TO ORAL INTAKE AT THIS TIME. MEDS PT PER EMAR. VSS. RECTAL TUBE IN PLACE, PATENT AND DRAINING. TORRES IN PLACE PATENT AND DRAINING. PT TRANSFERRED FROM ICU THIS SHIFT. NC AT 1L THOUGH PT REQUESTED NC REMOVAL. PT THEN DESATS TO 87 ON RA. BED IN LOW POSITION, CALL LIGHT WITHIN REACH.
--- NOTE | 2020-05-26 00:10 | NUR ---
05/25/201944 PT RESTING COMFORTABLY IN BED; LIMITED ROM NOTED BILATERAL UPPER ARMS; UNABLE TO TOUCH NOSE WITH HANDS.
--- NOTE | 2020-05-26 03:30 | NUR ---
SHIFT SUMMARY: 49 Y/O OBESE FEMALE RESTED COMFORTABLY ALL SHIFT; DENIES PAIN OR NAUSEA; TOLERATING FEEDINGS VIA DOBHOFF NGT TUBE VIA RIGHT NARE AT 15ML/HR; PT VERY DECONDITIONED AND REQUIRES EXTENSIVE PT/OT REHAB IN NEAR FUTURE; TORRES DRAINING CLEAR YELLOW FLUID; RECTAL TUBE DRAINING LIQUID BROWN STOOL; TELEMETRY REFLECTS NSR PER DEB--RESPIRATORY SCIENTIST; ALERT AND ORIENTED X 1, TALKS NONSENSICAL AT TIMES WITH STAFF, ABLE TO FOLLOW SIMPLE VERBAL COMMANDS; BED ALARM APPLIED, BED LOW POSITION WITH CALL LIGHT AT SIDE.
[2020-05-26 06:55] LABS: Hematocrit 28.2 % (33.0-51.0); Hemoglobin 9.2 g/dL (11.5-16.0); Mean Corpuscular HGB Conc 32.6 g/dL (31.5-36.5); Mean Corpuscular Volume 95 fL (80-100); Mean Platelet Volume 10.7 fL (9.1-12.4); Platelet Count 339 K/mm3 (150-400); RDW Coefficient Variation 14.5 % (11.7-14.2); RDW Standard Deviation 48.7 fL (35.1-46.3); Red Blood Cell Count 2.97 M/mm3 (3.80-5.20); White Blood Cell Count 9.09 K/mm3 (4.00-11.30)
[2020-05-26 07:20] LABS: Anion Gap 6 mmol/L (6-16); Blood Urea Nitrogen 21 mg/dL (8-24); Bun/Creatinine Ratio 33.5 (12.0-20.0); CO2, Blood 28 mmol/L (21-32); Calcium, Blood 8.4 mg/dL (8.5-10.1); Chloride, Blood 110 mmol/L (98-108); Creatinine, Blood 0.63 mg/dL (0.40-1.00); Glomerular Filtration Rate >60 (60-); Glucose, Blood 105 mg/dL (70-99); Potassium, Blood 3.2 mmol/L (3.5-5.5); Sodium, Blood 144 mmol/L (136-145)
--- NOTE | 2020-05-26 19:31 | NUR ---
SHIFT SUMMARY PT AxOx4, PLEASANT AND COOPERATIVE WITH CARE. PT STILL SEVERELY DECONDITIONED FROM BEING IN ICU AND INTUBATED. PT AND OT WORKING WITH PATIENT. DC DOBHOFF, RECTAL TUBE AND TORRES CATH TODAY. PT ALSO WEANED OFF O2 WITHOUT DIFFICULTY. DIET ADVANCED TO SOFT MECH WITH THIN LIQUIDS. PT IS TOLERATING DIET WELL. IN ROOM TODAY, RECEIVED UPDATE. PLAN TO DC WITH TO REHAB OR HOME HEALTH. CONVERTING TECHNICIAN WORKING ON SAFE DC. PT VITALS REVIEWED. CURRENTLY RESTING IN BED WITH CALL LIGHT IN REACH. DENIES ANY NEEDS AT THIS TIME.
--- NOTE | 2020-05-27 03:18 | NUR ---
SHIFT SUMMARY: 49 Y/O OBESE FEMALE RESTED COMFORTABLY ALL SHIFT; PT DENIES PAIN OR NAUSEA; PT VOIDING VIA BEDPAN WITHOUT ISSUE; HAPPY AND COOPERATIVE; PT STILL VERY DECONDITIONED AND REQUIRES ASSISTANCE WITH ALL ADLS/IADLS; PT IS ABLE TO RAISE BOTH ARMS AND TOUCH HER NOSE UPON REQUEST FROM THIS NURSE; PT REQUIRES ASSISTANCE FROM STAFF TO TURN AND GET REPOSITIONED SHE UNABLE TO PERFORM THIS TASK; DENIES SOB; BED ALARM APPLIED FOR SAFETY, BED LOW POSITION WITH CALL LIGHT AT SIDE.
[2020-05-27 05:21] LABS: Hematocrit 26.8 % (33.0-51.0); Hemoglobin 8.8 g/dL (11.5-16.0); Mean Corpuscular HGB Conc 32.8 g/dL (31.5-36.5); Mean Corpuscular Volume 94 fL (80-100); Platelet Count 341 K/mm3 (150-400); RDW Coefficient Variation 14.5 % (11.7-14.2); RDW Standard Deviation 48.7 fL (35.1-46.3); Red Blood Cell Count 2.84 M/mm3 (3.80-5.20); White Blood Cell Count 5.67 K/mm3 (4.00-11.30)
[2020-05-27 05:49] LABS: Anion Gap 6 mmol/L (6-16); Blood Urea Nitrogen 20 mg/dL (8-24); Bun/Creatinine Ratio 28.3 (12.0-20.0); CO2, Blood 27 mmol/L (21-32); Calcium, Blood 8.4 mg/dL (8.5-10.1); Chloride, Blood 107 mmol/L (98-108); Creatinine, Blood 0.71 mg/dL (0.40-1.00); Glomerular Filtration Rate >60 (60-); Glucose, Blood 95 mg/dL (70-99); Potassium, Blood 3.8 mmol/L (3.5-5.5); Sodium, Blood 140 mmol/L (136-145)
--- NOTE | 2020-05-27 16:48 | NUR ---
SUMMARY PT IS A/O X2-3, FORGETFUL HOWEVER REORIENTS EASILY. PLEASANT, HAPPY AFFECT. SHE STATED CHR BACK PAIN THIS AM, TYLENOL GIVEN FOR RELIEF. SHE CONTINUES VERY WEAK, REQUIRES ASSIST TO EAT. REQUIRES 2 MAX ASSIST TO GET OOB TO BSC. PHYTHER IN FOR TX TODAY HOWEVER PT UNABLE TO AMBULATE. DR GORDON STOP IV ANTIBX & CHANGE TO ORAL. NSR/TELE, HR 70-80'S. VSS.
--- NOTE | 2020-05-28 04:23 | NUR ---
SHIFT SUMMARY PT HAS RESTED OFF AND T/O THE NIGHT. PT REPORTS THAT HER STRENGTH IS RETURNING, AND SHE IS ABLE TO HOLD A CUP OF WATER ON HER OWN. HOWEVER WHEN STANDING TO USE THE RESTROOM THIS SHIFT. PT BECAME DIZZY AND WEAK AND REQUIRED THE HELP OF TWO STAFF MEMBERS TO GET HER TO THE BATHROOM. PT QUICKLY RECOVERED FROM HER DIZZY SPELL. NO RESPIRATORY SYMPTOMS THIS SHIFT, SHE DENIES SOB. VITALS STABLE. PT HOPING TO DC FRIDAY AND IS MOTIVATED TO REGAIN HER STRENGTH. NO ACUTE CHANGES OVERNIGHT. BED IN LOWEST POSITION, CALL LIGHT WITHIN REACH.
[2020-05-28 05:39] LABS: Hematocrit 27.5 % (33.0-51.0); Mean Corpuscular HGB Conc 32.7 g/dL (31.5-36.5); Mean Corpuscular Volume 95 fL (80-100); Mean Platelet Volume 10.7 fL (9.1-12.4); Platelet Count 355 K/mm3 (150-400); RDW Coefficient Variation 14.6 % (11.7-14.2); RDW Standard Deviation 49.2 fL (35.1-46.3); White Blood Cell Count 6.61 K/mm3 (4.00-11.30)
[2020-05-28 06:00] LABS: BASOPHILS ABSOLUTE MAN 0.13 K/mm3 (0.00-0.23); BASOPHILS PERCENT MAN 2 % (0-2); EOSINOPHILS ABSOLUTE MAN 0.46 K/mm3 (0.00-0.68); EOSINOPHILS PERCENT MAN 7 % (0-6); LYMPHOCYTES % ATYPICAL MANUAL 1 % (0-0); LYMPHOCYTES ABSOLUTE MAN 2.37 K/mm3 (0.84-5.20); LYMPHOCYTES PERCENT MAN 35 % (21-46); MONOCYTES ABSOLUTE MAN 0.79 K/mm3 (0.16-1.47); MONOCYTES PERCENT MAN 12 % (4-13); NEUTROPHILS ABSOLUTE MAN 2.84 K/mm3 (1.96-9.15); SEG NEUTROPHILS PERCENT MAN 43 % (41-73); TOTAL CELLS COUNTED 100
[2020-05-28 06:18] LABS: Anion Gap 6 mmol/L (6-16); Blood Urea Nitrogen 16 mg/dL (8-24); Bun/Creatinine Ratio 25.4 (12.0-20.0); CO2, Blood 25 mmol/L (21-32); Calcium, Blood 8.7 mg/dL (8.5-10.1); Chloride, Blood 105 mmol/L (98-108); Creatinine, Blood 0.63 mg/dL (0.40-1.00); Glomerular Filtration Rate >60 (60-); Glucose, Blood 100 mg/dL (70-99); Magnesium, Blood 1.9 mg/dL (1.6-2.4); Potassium, Blood 4.3 mmol/L (3.5-5.5); Sodium, Blood 136 mmol/L (136-145)
--- NOTE | 2020-05-28 16:15 | NUR ---
SUMMARY PT IS A/O X3, PLEASANT/COOPERATIVE. SHE STATE FATIGUE D/T POOR SLEEP LAST NOC. SHE HAS NAPPED THIS AFTERNOON. CONTINUING WEAKNESS, ESPECIALLY LEGS, HOWEVER IMPROVING. SHE IS ABLE TO STAND w ASSIST, FWW. SHE IS ABLE TO TAKE SM STEPS TO BSC TO VOID, LESS INCONTINENCE. BUE GAINING IN STRENGTH, SHE IS ABLE TO FEED HERSELF. NO PHYTHER TODAY. SHE DECLINED UP IN CHAIR D/T FATIGUE. VSS. ISTRATE STATE PLAN FOR HER TO GO HOME IN A FEW DAYS WHEN STRONGER.
--- NOTE | 2020-05-29 05:32 | NUR ---
SHIFT SUMMARY NO ACUTE CHANGES TO REPORT THIS SHIFT. PT CONTINUES TO REPORT THAT SHE IS FEELING STRONGER AND IS ABLE TO FEED HERSELF WITHOUT ASSISTANCE. PT HAS BEEN AMBULATING WITH 1 PA TO THE BSC. VITALS HAVE BEEN STABLE, RESPIRATORY STATUS STABLE AND WNL. PLAN IS FOR DC WITHIN THE NEXT 1-2 DAYS. BED IN LOWEST POSITION, CALL LIGHT WITHIN REACH.
[2020-05-29 06:35] LABS: BASOPHILS ABSOLUTE AUTO 0.06 K/mm3 (0.00-0.23); BASOPHILS PERCENT AUTO 1 % (0-2); EOSINOPHILS ABSOLUTE AUTO 0.52 K/mm3 (0.00-0.68); EOSINOPHILS PERCENT AUTO 7 % (0-6); Hematocrit 29.1 % (33.0-51.0); Hemoglobin 9.6 g/dL (11.5-16.0); IMMATURE GRAN ABSOLUTE AUTO 0.06 K/mm3 (0.00-0.10); IMMATURE GRAN PERCENT AUTO 1 % (0-1); LYMPHOCYTES ABSOLUTE AUTO 2.55 K/mm3 (0.84-5.20); LYMPHOCYTES PERCENT AUTO 33 % (21-46); MONOCYTES PERCENT AUTO 13 % (4-13); Mean Corpuscular HGB 31.2 pg (26.0-34.0); Mean Corpuscular Volume 95 fL (80-100); Mean Platelet Volume 10.7 fL (9.1-12.4); NEUTROPHILS PERCENT AUTO 45 % (41-73); Platelet Count 388 K/mm3 (150-400); RDW Coefficient Variation 14.7 % (11.7-14.2); Red Blood Cell Count 3.08 M/mm3 (3.80-5.20); White Blood Cell Count 7.69 K/mm3 (4.00-11.30)
[2020-05-29 06:52] LABS: Anion Gap 6 mmol/L (6-16); Blood Urea Nitrogen 16 mg/dL (8-24); Bun/Creatinine Ratio 23.1 (12.0-20.0); CO2, Blood 26 mmol/L (21-32); Calcium, Blood 8.9 mg/dL (8.5-10.1); Chloride, Blood 104 mmol/L (98-108); Creatinine, Blood 0.69 mg/dL (0.40-1.00); Glomerular Filtration Rate >60 (60-); Glucose, Blood 103 mg/dL (70-99); Phosphorus, Blood 4.5 mg/dL (2.5-4.9); Potassium, Blood 4.6 mmol/L (3.5-5.5); Sodium, Blood 136 mmol/L (136-145)
[2020-05-29] MEDS ORDERED: AMOCLA875 PO (11:55)
[2020-05-29] MEDS ORDERED: ALBU90OI INH (11:55)
[2020-05-29] MEDS ORDERED: ACET325 PO (11:55)
[2020-05-29] MEDS ORDERED: Tegretol Xr400 MG PO (11:56)
[2020-05-29] MEDS ORDERED: PANT20 PO (11:56)
[2020-05-29] MEDS ORDERED: FURO20 PO (11:56)
[2020-05-29] MEDS ORDERED: [UNRECOGNIZED DRUG - OTHER] BOTHEYES (11:58)
[2020-05-29] MEDS ORDERED: VISBIOME 112.51 EACH PO (12:00)
[2020-05-29] MEDS ORDERED: POTA20LUD PO (12:00)
--- NOTE | 2020-05-29 15:40 | NUR ---
DISCHARGE PT DISCHARGED AFTER WORKING WITH PHYSICAL THERAPY. PT AMBULATING WELL WITHIN ROOM A SBA. HARD SCRIPT FOR A FWW GIVEN TO PT THIS AFTERNOON FROM DR. ANGEL. PT MEDS FAXED TO [facility]. PT & SPOUSE EDUCATED ON NEW MEDS AND FOLLOW UP APPOINTMENTS. PT PICC DC'ED BY [facility] OR NURSERY TRANSPLANTERSANDI. NO ACUTE CHANGES IN ASSESSMENT PRIOR TO DC. PT WHEELED OUT BY THIS RN AND DRIVEN HOME BY SPOUSE.
== END 2020-05-29 15:28 | disposition home health service (06) | DRG 870 ==
LOC: ER 14:35 → MEDS 17:54 → ICUE 17:54 → MEDS 19:49 → ICUE 05-15 03:29 → MEDS 05-25 14:44 → ENPENDDIS 05-29 11:15 → MEDS 05-29 15:28
PROVIDERS: Emergency Medicine; Family Medicine; Internal Medicine; Internal Medicine Critical Care Medicine; Pharmacist; ADMIT Internal Medicine
PROC: 5A09357 Assistance with Respiratory Ventilation, Less than 24 Consecutive Hours, Continuous Positive Airway Pressure (ICD-10-PCS; principal; 2020-05-14)
PROC: 02HV33Z Insertion of Infusion Device into Superior Vena Cava, Percutaneous Approach (ICD-10-PCS; 2020-05-14)
PROC: 0W3P8ZZ Control Bleeding in Gastrointestinal Tract, Via Natural or Artificial Opening Endoscopic (ICD-10-PCS; 2020-05-15)
PROC: 0DB68ZX Excision of Stomach, Via Natural or Artificial Opening Endoscopic, Diagnostic (ICD-10-PCS; 2020-05-15)
PROC: 0BH18EZ Insertion of Endotracheal Airway into Trachea, Via Natural or Artificial Opening Endoscopic (ICD-10-PCS; 2020-05-15)
PROC: 5A1955Z Respiratory Ventilation, Greater than 96 Consecutive Hours (ICD-10-PCS; 2020-05-21)
DX: A41.9 Sepsis, unspecified organism (principal); J96.01 Acute respiratory failure with hypoxia; K31.82 Dieulafoy lesion (hemorrhagic) of stomach and duodenum; K25.4 Chronic or unspecified gastric ulcer with hemorrhage; K26.4 Chronic or unspecified duodenal ulcer with hemorrhage; J18.9 Pneumonia, unspecified organism; E87.1 Hypo-osmolality and hyponatremia; E87.2 Acidosis; J44.0 Chronic obstructive pulmonary disease with (acute) lower respiratory infection; E87.4 Mixed disorder of acid-base balance; Z51.5 Encounter for palliative care; F31.9 Bipolar disorder, unspecified; R65.20 Severe sepsis without septic shock; F43.10 Post-traumatic stress disorder, unspecified; Z20.822 Contact with and (suspected) exposure to COVID-19; E87.6 Hypokalemia; F17.200 Nicotine dependence, unspecified, uncomplicated; F41.9 Anxiety disorder, unspecified; M79.7 Fibromyalgia; E66.9 Obesity, unspecified; Z68.31 Body mass index [BMI] 31.0-31.9, adult; I10 Essential (primary) hypertension; Z78.1 Physical restraint status
CPT/HCPCS: 0241U; 31500; 36415; 36569; 36600; 51702; 71045; 80048; 80053; 80069; 80202; 81001; 82150; 82330; 82435; 82803; 82947; 83605; 83690; 83735; 83880; 84100; 84132; 84145; 84295; 85014; 85018; 85025; 85027; 85610; 85730; 86850; 86900; 86901; 87040; 87070; 87086; 87205; 87493; 88305; 88342; 92526; 92610; 93005; 93010; 93306; 94002; 94003; 94640; 94660; 94667; 94668; 94760; 94762; 96365; 96366; 96367; 96375; 97110; 97162; 97165; 97530; 99285-25; A9270; C1751; C9113; G0008; J0171; J0696; J1430; J1630; J1650; J1885; J1940; J1956; J2060; J2405; J2543; J2704; J2765; J3010; J3370; J3475; J3480; J7030; J7040; J7050; J7060; J7120; Q2038

== ENCOUNTER 2021-06-11 11:23 | Emergency (ER) | payer MEDICARE, OTHER ==
[~2021-06-11] VITALS: Ht 160 cm; Wt 97.1 kg
[~2021-06-11 11:23] MED LIST changes: +ACET325 PO; +ALBU90OI INH; +AMOCLA875 PO; +ESTR2 PO; +FURO20 PO; +GABA300 PO; +LISI20 PO; +ONDA4 PO; +OXYB5 PO; +PANT20 PO; +POTA20LUD PO; +PROG100 PO; +Tegretol Xr400 MG PO; +VISBIOME 112.51 EACH PO; +ZOCOR20 MG PO; +[UNRECOGNIZED DRUG - OTHER] BOTHEYES
[2021-06-11] MEDS ORDERED: Percocet 5-3251 EACH PO (13:14)
[2021-06-11] MEDS ORDERED: NAPROXEN250 M1 PO (13:14)
== END 2021-06-11 13:53 | disposition home or self-care (01) ==
LOC: ER 11:23
DX: S82.831A Other fracture of upper and lower end of right fibula, initial encounter for closed fracture (principal); S93.402A Sprain of unspecified ligament of left ankle, initial encounter; J44.9 Chronic obstructive pulmonary disease, unspecified; Z88.5 Allergy status to narcotic agent; Z91.048 Other nonmedicinal substance allergy status; Z91.030 Bee allergy status; Z79.899 Other long term (current) drug therapy; X58.XXXA Exposure to other specified factors, initial encounter
CPT/HCPCS: 29515; 73590; 73610; 96374; 96375; 99283-25; A9270; J1885; J3010

== ENCOUNTER 2021-06-15 10:05 | Day surgery (SDC) | payer MEDICARE, OTHER ==
[~2021-06-15] VITALS: Ht 165.1 cm; Wt 97.1 kg
[~2021-06-15 10:05] MED LIST changes: +NAPROXEN250 M1 PO; +Percocet 5-3251 EACH PO
--- NOTE | 2021-06-15 11:54 | NUR ---
06/15/21 1154 Tsering Watson 0.15ML OF EPI 1MG/ML ADDED TO 30ML OF BUPIVICAINE 0.5% TO CREATE A SPLLUTION OF BUPIVICAINE 0.5% WITH EPI 1:200,000.
--- NOTE | 2021-06-15 14:30 | NUR ---
06/15/21 1430 Kiley Hunt PT. STATES PAIN IS NOW 4/10. TOLERABLE FOR HER. WANTS TO DISCHARGE HOME. ASSISTED WITH CLOTHES. DISCHARGE INSTRUCTIONS GIVEN. RX GIVEN. IV REMOVED. ASSISTED TO CAR WITH DAUGHTER AND SPOUSE VIA WC.
== END 2021-06-15 14:31 | disposition home or self-care (01) ==
LOC: ORSCSDS 10:05
PROVIDERS: Podiatrist Foot & Ankle Surgery
PROC: 0SSF04Z Reposition Right Ankle Joint with Internal Fixation Device, Open Approach (ICD-10-PCS; principal; 2021-06-15 11:45)
PROC: 0QSJ04Z Reposition Right Fibula with Internal Fixation Device, Open Approach (ICD-10-PCS; principal; 2021-06-15 11:45)
DX: S82.61XA Displaced fracture of lateral malleolus of right fibula, initial encounter for closed fracture (principal); S93.431A Sprain of tibiofibular ligament of right ankle, initial encounter; I10 Essential (primary) hypertension; K21.9 Gastro-esophageal reflux disease without esophagitis; J44.9 Chronic obstructive pulmonary disease, unspecified; E66.9 Obesity, unspecified; Z68.38 Body mass index [BMI] 38.0-38.9, adult; F17.210 Nicotine dependence, cigarettes, uncomplicated; Z79.899 Other long term (current) drug therapy
CPT/HCPCS: A9270; C1713; C1776; J0171; J0690; J1100; J1170; J2250; J2405; J2704; J3010; J7120

== ENCOUNTER 2023-11-17 07:38 | Day surgery (SDC) | payer OTHER ==
[~2023-11-17] VITALS: Ht 160 cm; Wt 90.9 kg
[2023-11-17] MEDS ORDERED: ONDA4ODT (08:20)
[2023-11-17] MEDS ORDERED: Prinivil10 MG (08:20)
[2023-11-17] MEDS ORDERED: MEDR5 (08:20)
[2023-11-17] MEDS ORDERED: ROSUVASTATIN CA20 MG (08:20)
[2023-11-17] MEDS ORDERED: CATAPRES0.1 MG (08:21)
[2023-11-17] MEDS ORDERED: HYDROCHLOROTH12.5 MG (08:21)
[2023-11-17] MEDS ORDERED: LINZESS72 MCG (08:21)
[2023-11-17] MEDS ORDERED: IPRAT-ALBUT 0.5-3 ML (08:22)
[2023-11-17] MEDS ORDERED: Lactated Ringer's 1,000 ML IV ONE ×2 (08:24→09:00)
[2023-11-17] MEDS ORDERED: propofoL 50 ML IV ONE (08:24)
[2023-11-17] MEDS ORDERED: Lidocaine HCl/Pf 1% 5 ML VIAL ONE (08:35)
--- NOTE | 2023-11-17 09:04 | NUR ---
11/17/23 0904 Cindy Raphael PT. HAS CHRONIC BACK PAIN RATING A "6", TAKES TYLENOL ARTHTRITIS FOR THIS.
[2023-11-17] MEDS ORDERED: Glycopyrrolate 0.2 MG/ML 1MLVIAL ONE (09:33)
[2023-11-17 10:12] VITALS: BP 148/94
== END 2023-11-17 10:10 | disposition home or self-care (01) ==
LOC: ORSCSDS 07:38
PROVIDERS: Internal Medicine Gastroenterology
PROC: 0DBL8ZX Excision of Transverse Colon, Via Natural or Artificial Opening Endoscopic, Diagnostic (ICD-10-PCS; principal; 2023-11-17 08:45)
DX: R10.9 Unspecified abdominal pain (principal); Z86.010 Personal history of colon polyps; D12.3 Benign neoplasm of transverse colon; K59.00 Constipation, unspecified; K21.9 Gastro-esophageal reflux disease without esophagitis; I10 Essential (primary) hypertension; J44.9 Chronic obstructive pulmonary disease, unspecified; Z87.891 Personal history of nicotine dependence; Z79.899 Other long term (current) drug therapy
CPT/HCPCS: 88305; J2001; J2704; J7120

== ENCOUNTER 2024-06-20 08:49 | Observation (INO) | payer OTHER ==
[~2024-06-20] VITALS: Ht 160 cm; Wt 90.7 kg
[~2024-06-20 08:49] MED LIST changes: +CATAPRES0.1 MG; +HYDROCHLOROTH12.5 MG; +IPRAT-ALBUT 0.5-3 ML; +LINZESS72 MCG; +MEDR5; +ONDA4ODT; +Prinivil10 MG; +ROSUVASTATIN CA20 MG
[2024-06-20] MEDS ORDERED: Metoclopramide HCl 5MG / ML 2ML Vial IV ONE (09:30)
[2024-06-20] MEDS ORDERED: NS 1,000 ML IV SCH (09:30)
[2024-06-20] MEDS ORDERED: DiphenhydrAMINE HCl 50 MG/ML 1ML Vial IV ONE (09:35)
[2024-06-20 09:50] LABS: BASOPHILS ABSOLUTE AUTO 0.03 K/mm3 (0.00-0.23); BASOPHILS PERCENT AUTO 0 % (0-2); EOSINOPHILS ABSOLUTE AUTO 0.06 K/mm3 (0.00-0.68); EOSINOPHILS PERCENT AUTO 1 % (0-6); Hematocrit 40.6 % (33.0-51.0); Hemoglobin 13.8 g/dL (11.5-16.0); IMMATURE GRAN ABSOLUTE AUTO 0.04 K/mm3 (0.00-0.10); IMMATURE GRAN PERCENT AUTO 0 % (0-1); LYMPHOCYTES ABSOLUTE AUTO 1.72 K/mm3 (0.84-5.20); LYMPHOCYTES PERCENT AUTO 15 % (21-46); MONOCYTES ABSOLUTE AUTO 0.97 K/mm3 (0.16-1.47); MONOCYTES PERCENT AUTO 8 % (4-13); Mean Corpuscular HGB 29.9 pg (26.0-34.0); Mean Corpuscular Volume 88 fL (80-100); Mean Platelet Volume 10.1 fL (9.1-12.4); NEUTROPHILS ABSOLUTE AUTO 8.76 K/mm3 (1.96-9.15); NEUTROPHILS PERCENT AUTO 76 % (41-73); Platelet Count 414 K/mm3 (150-400); RDW Coefficient Variation 12.5 % (11.7-14.2); Red Blood Cell Count 4.61 M/mm3 (3.80-5.20); White Blood Cell Count 11.58 K/mm3 (4.00-11.30)
[2024-06-20 10:12] LABS: Alanine Aminotransfer (ALT/SGP 45 U/L (12-78); Albumin, Blood 3.7 g/dL (3.4-5.0); Albumin/Globulin Ratio 0.9 (0.8-1.8); Alk Phos 99 U/L (50-136); Anion Gap 13 mmol/L (3-11); Aspartate Aminotrans (AST/SGOT 50 U/L (12-37); Beta HCG, Quantitative, Serum <1 mIU/mL (0-3); Bilirubin, Total 0.6 mg/dL (0.1-1.0); Blood Urea Nitrogen 12 mg/dL (8-24); Bun/Creatinine Ratio 14.5 (12.0-20.0); CO2, Blood 22 mmol/L (21-32); Calcium, Blood 9.4 mg/dL (8.5-10.1); Chloride, Blood 99 mmol/L (98-108); Creatinine, Blood 0.83 mg/dL (0.40-1.00); Globulin, Blood 4.2 g/dL (2.2-4.0); Glomerular Filtration Rate 85 (60-); Glucose, Blood 137 mg/dL (70-99); Potassium, Blood 3.9 mmol/L (3.5-5.5); Sodium, Blood 130 mmol/L (136-145); Total Protein, Blood 7.9 g/dL (6.4-8.2)
[2024-06-20] MEDS ORDERED: Pantoprazole Sodium 40 MG Injection IV ONE (11:05)
[2024-06-20] MEDS ORDERED: HYDROcodone 7.5-APAP 325 TAB PO ONE (11:10)
[2024-06-20] MEDS ORDERED: FentaNYL Citrate 50 MCG/ML 2 ML Injection IV ONE (11:45)
[2024-06-20] MEDS ORDERED: Lactated Ringer's 1,000 ML IV SCH (13:50)
[2024-06-20] MEDS ORDERED: NS KCl 20mEq 1,000 ML IV SCH (14:00)
[2024-06-20] MEDS ORDERED: Prochlorperazine Edisylate 10 mg Vial IV PRN (14:00)
[2024-06-20 14:18] VITALS: BP 169/112
--- NOTE | 2024-06-20 14:25 | NUR ---
History, Chart, Medications and Allergies reviewed before start of procedure.PRE OP TEACHING DONE
[2024-06-20] MEDS ORDERED: propofoL 40 ML IV ONE (14:26)
[2024-06-20] MEDS ORDERED: Midazolam HCl 1MG / ML 2ML Vial ONE (14:38)
[2024-06-20] MEDS ORDERED: ePHEDrine Sulfate 50 MG/ML 1ML Injection ONE (14:43)
[2024-06-20] MEDS ORDERED: Albuterol HFA200 ACT/6.7 GM INH INH PRN (14:45)
[2024-06-20] MEDS ORDERED: FentaNYL Citrate 50 MCG/ML 2 ML Injection ONE (15:29)
--- NOTE | 2024-06-20 15:47 | NUR ---
06/20/24 4511 Kendra Gomes 89 CONFIRMED AND REVIEWED H&P, MEDCICATIONS, ALLERGIES, MEDICAL HISTORY, RESPIRATORY HISTORY, VITAL SIGNS, 3-LEAD EKG, CONSENTS, AND PHYSICIAN ORDERS. PATIENT CONFIRMS NPO STATUS AND AGREES WITH SCHEDULED PROCEDURE. MONITOR INTACT WITH CONTINUOUS PULSE OXIMETRY, CAPNOGRAPHY, 3-LEAD EKG, INTERMITTENT BP. SUPPLEMENTAL O2 TO BE TITRATED THROUGHOUT PROCEDURE TO MAINTAIN O2 SATURATION ABOVE 90%. PATIENT DETERMINED TO BE ASA APPROPRIATE FOR PROPOFOL SEDATION PRIOR TO START OF PROCEDURE BY DR. STOCKTON 2915 UNABLE TO PROCEDE WITH NURSE SEDATION PT DID NOT SEDATE SAFELY
--- NOTE | 2024-06-20 16:15 | NUR ---
TRANSFER FROM DAY SURGERY PATIENT ADMITTED AFTER EGD. PATIENT ALERT AND INTERACTIVE. TOLERATING CLEAR LIQUIDS WELL. PLAN TO DISCHARGE ONCE PATIENT TOLERTATING FLUIDS WELL AND ABLE TO VOID. PATIENT ANXIOUS BUT COOPERATIVE. PATIENT STATES SHE HAS A HX OF PTSD AND BIPOLAR DISORDER. EDUCATION PROVIDED TO PATIENT RELATED TO ACID REDUCTION, DIET POST EGD, AND MANAGEMENT OF MENTAL HEALTH ISSUES.
[2024-06-20 16:46] VITALS: BP 139/86
[2024-06-20] MEDS ORDERED: PHENERGAN25 MG PR (17:20)
--- NOTE | 2024-06-20 17:45 | NUR ---
DISCHARGE PATIENT DISCHARGED HOME. PATIENT ALERT AND INTERACTIVE. PATIENT ABLE TO AMBULATE TO THE BATHROOM INDEPENDENTLY. NO NAUSEA OR ACTIVE SIGNS OF BLEEDING. DISCHARGE INSTRUCTIONS REVIEWED WITH PATIENT. IV DC'D, BELONGINGS RETURNED TO PATIENT. PATIENT TAKEN OUT VIA WHEELCHAIR BY DRY KILN BURNER. WITH PATIENT THROUGHOUT VISIT ON MEDICAL FLOOR.
[2024-06-20] MEDS ORDERED: FLU VACC TS2024-25(6MOS UP)/PF 45 MCG/0.5 ML SYRINGE IM ONE (18:00)
[2024-06-20] MEDS ORDERED: Propofol 10mg/ml 20 ml Vial (Procedural) IV ONE (18:30)
[2024-06-20] MEDS ORDERED: Gabapentin 300 MG Cap PO SCH (21:00)
[2024-06-20] MEDS ORDERED: CARBAMAZEPINE 200 MG PO SCH (21:00)
[2024-06-21] MEDS ORDERED: HydroCHLOROthiazide 25 mg Tab PO SCH (09:00)
[2024-06-21] MEDS ORDERED: DULoxetine HCL 30 MG Cap DR PO SCH (09:00)
[2024-06-21] MEDS ORDERED: Propranolol HCL 80 MG CAPCR PO SCH (09:00)
[2024-06-21] MEDS ORDERED: Lisinopril 10 MG Tab PO SCH (09:00)
== END 2024-06-20 17:43 | disposition home or self-care (01) ==
LOC: ER 08:49 → MEDS 08:50
PROVIDERS: Internal Medicine Gastroenterology; Student in an Organized Health Care Education/Training Program; ADMIT Internal Medicine
PROC: 0DJ08ZZ Inspection of Upper Intestinal Tract, Via Natural or Artificial Opening Endoscopic (ICD-10-PCS; principal; 2024-06-20 13:00)
DX: K22.6 Gastro-esophageal laceration-hemorrhage syndrome (principal); K22.2 Esophageal obstruction; E87.1 Hypo-osmolality and hyponatremia; I10 Essential (primary) hypertension; J44.89 Other specified chronic obstructive pulmonary disease; E78.5 Hyperlipidemia, unspecified; M79.7 Fibromyalgia; G25.0 Essential tremor; G89.29 Other chronic pain; M54.9 Dorsalgia, unspecified; F41.9 Anxiety disorder, unspecified; G43.E09 Chronic migraine with aura, not intractable, without status migrainosus; F32.A Depression, unspecified; Z87.891 Personal history of nicotine dependence; Z88.5 Allergy status to narcotic agent; Z88.8 Allergy status to other drugs, medicaments and biological substances; Z79.899 Other long term (current) drug therapy
CPT/HCPCS: 74177; 80053; 82272; 83605; 83690; 84702; 85025; 93005; 93010; 96361; 96374-59; 96375; 99285-25; A9270; J1200; J2250; J2470; J2704; J2765; J3010; J7030; J7120; Q9967

== ENCOUNTER → 2025-03-22 | Outpatient (CLI) | payer OTHER ==
[~2025-03-22] MED LIST changes: +PHENERGAN25 MG PR
[2025-03-22 16:54] LABS: Candida Group, PCR NOT DETECTED (NOT DETECT); Candida glabrata-krusei, PCR NOT DETECTED (NOT DETECT)
[2025-03-22 17:50] LABS: Bacterial Vaginosis PCR Positive (NEGATIVE)
== END | disposition home or self-care (01) ==
LOC: LAB SHORT 12:00 → LAB 12:00
PROVIDERS: Obstetrics & Gynecology
DX: Z01.419 Encounter for gynecological examination (general) (routine) without abnormal findings (principal); N89.8 Other specified noninflammatory disorders of vagina
CPT/HCPCS: 81515; 87624; G0145